=== PATIENT | male | born 1960 | race Caucasian/White ===

== ENCOUNTER 2024-11-29 14:24 | Outpatient (AMB) | payer MEDICARE, SELFPAY ==
[2024-11-29 15:43] VITALS: BMI 28.7
--- NOTE | 2024-11-29 15:43 | A.SPINEOV_ITS ---
Vital Signs 11/29/24 15:43 Height 5 ft 10 in Weight 200 lb BMI 28.7 Intake Visit Reasons: spinal stenosis/second opinion Intake Note: Mr. Meyers is here today c/o Low back pain that radiates down to the legs causing numbness and tingling. 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 Zabala, Thank you for referring Yoshi to our office today. He is a pleasant 64-year-old male who comes in today with a chief complaint of mild low back pain accompanied by moderate-severe leg pain with ambulation. He denies any known inciting incident, and states that around April of 2023 he began feeling leg pain with the excessive activity. He states that his pain is a 8/10 with ambulation, and is 0/10 with rest. When describing his pain he states that it comes on after about 100 steps, and starts as a shooting pain into his bilateral posterior thighs. This pain will eventually develop into medial thigh numbness/tingling. Functionally, he is still doing quite well. He is able to complete his basic ADLs including grocery shopping without significant issue. Unfortunately, he was unable to remain as active as he previously was and can no longer go for long walks outside or participate in outdoor activities. He has been to physical therapy in the past and last completed a course of physical therapy in the late fall which he did find was helpful for him. He has not attempted cor tisone injections, has not tried to work with a chiropractor, and has not attempted acupuncture as of yet. He does not take any xuep-zay-wqwakri medications, as he feels these are not helpful for him. PMH: Hypertension, hyperlipidemia, bilateral total knee arthroplasty in 2019. Social hx: The patient does not smoke, reports no substance use other than recreational cannabis. Medications: Triamterene, HCTZ, lisinopril, fenofibrate, simvastatin. Allergies: NKDA. Physical exam: The patient has 5/5 strength in his upper and lower extremities. He has no significant sensational deficits. His reflexes are 2+ intact. He rises from a seated position without difficulty. He ambulates well without an antalgic or spastic gait. (-) bilateral straight leg raise, (-) Rea's, (-) clonus. Imaging review: MRI of the lumbar spine completed at [facility] shows severe central canal stenosis at L3-4, L4-5. There is moderate-severe bilateral foraminal stenosis at these levels worse on the right at L3-4. There is also a very slight spondylolisthesis at L4-5. Impression: Yoshi is a pleasant 64-year-old male who comes in today with a chief complaint of low-grade low back pain, with moderate-severe shooting pains into his bilateral lower extremities with ambulation. He was evaluated alongside the attending neurosurgeon Dr. Ford today. His history and clinical presentation is most consistent with spinal stenosis with neurogenic claudication. Unfortunately he feels this is quite limiting for him. He is unable to engage in meaningful activities, and is largely unable to exercise outdoors. He is concerned that his quality of life is diminishing significantly as a result of this. He is highly motivated for surgical correction this issue. We discussed the possible interventions for this which could be temporizing measures just cortisone injections or more permanent solution such as surgery. The patient would prefer to proceed with surgery. After evaluating the patient Dr. Ford offered the patient L3-4, L4-5 lumbar decompression unilateral approach. He knows there is a risk of increased instability in the presence of a pre-existent mild spondylolisthesis. However, we think it goes too far to offer him a 2 level fusion in the absence of back pain. The risk of instability is minor. I used the spine models in our office to explain this procedure to him. I answered all of his questions to the best of my ability. Yoshi was given risk and benefits of surgery including but not limited to infection, hematoma, nerve injury, durotomy, weakness, bowel/bladder injury, persistent pain, as well as the option to continue with conservative treatment and patient wishes to proceed with surgery. They are aware they should stop NSAIDs 7 days prior to surgery. All questions were answered to the best of our ability. If there is anything about this patients medical history that we have overlooked or concerns you have about us proceeding with surgery we would appreciate any input you can offer. Thank you for allowing us to care for your patient. The total time spent with this visit with this patient was 45 minutes reviewing history, physical exam, MRI imaging review, and implementation of treatment plan or further diagnostic testing Jl Ford MD,PhD [facility] Orders: Referrals Spine Surgery Notification M48.062 - Spinal stenosis, lumbar region with neurogenic claudication Coding Level of Care Code New Pt Level 4 (03160) Diagnoses Spinal stenosis of lumbar region with neurogenic claudication M48.062
--- OUTSIDE RECORDS SUMMARY | 2024-11-29 17:02 | XMS_ITS | Data Portability ---
Author Organization [facility] Address [address] [place] [address] Care Team Providers Care Costing Analyst Name Role Phone RONY FINK Primary Care Provider [phone] RONY FINK Referring Provider [phone] Assessment No assessment recorded. Plan of Treatment Reminders Order Date Submit Date Provider Last Modified By Organization Details Last Modified Time Details Appointments None record ed. Lab None record ed. Referral None record ed. Procedures None record ed. Surgeries None record ed. Imaging XR, foot, 3 or more view 023 10/14/20 23 [email or web address] In-House Test, For Internal Use Only, Do Not Delete/merge, [id number] 13:45:23 Medication Orders None record ed. Patient TargetsNo targets recorded. Patient Instructions Encounter Date Encounter Id Patient Instructions Last Modified By Organization Details Last Modified Time 10/14/2023 [id number] For shoes, look at the Jarad fly lite and ultrafly (and rekovr if they have your size) and see how they feel. I like shoes that are square and deep in the toe box. Not available 10/14/2023 13:41:59 The findings of hammertoe were discussed at length. Treatment can involve activity modification, shoe change, padding, trimming painful callus/corn, orthotics, medication and surgery. The findings of metatarsalgia were reviewed at length. The soreness in the ball of the foot can be from the bone, capsule, or the plantar plate region. This can be treated using anti-inflammatory medicine or injections, ice, changing shoes, padding-reducing the offending activity, inserts/orthotics and ultimately trying to reduce load through the forefoot by addressing proximal tightness and immobility. Surgery is needed at times for this condition. At this time patient has decided on the budin splint today, shoe changes with width and depth. Patient Education Genius was used during today's discussion creating content for the patient and reviewing the underlying condition, the cause(s) of the condition(s), specific instruction on home management, helpful exercises and specific areas of focus. He would need a PIPJ fusion, perhaps DIPJ arthroplasty and met osteotomy +/- plantar plate repair. The new patient visit today had a decision making nature that was of {{straight forward complexity or required a total time of 15-29 minutes including time spent directly with the patient explaining their conditions, causes and treatment options as well as time reviewing external notes, ordering and reviewing any tests if applicable low level complexity or required a total time of 30-44 minutes including time spent directly with the patient explaining their conditions, causes and treatment options as well as time reviewing external notes, ordering and reviewing any tests if applicable* modera te level complexity or required a total time of 45-59 minutes including time spent directly with the patient explaining their conditions, causes and treatment options as well as time reviewing external notes, ordering and reviewing any tests if applicable high level complexity or required a total time of 60-74 minutes including time spent directly with the patient explaining their conditions, causes and treatment options as well as time reviewing external notes, ordering and reviewing any tests if applicable}}. An opportunity was provided for the patient to ask questions and all of the patient's questions were answered to their satisfaction. Not available 10/14/2023 13:44:48 02/16/2024 [id number] The findings of hammertoe were discussed at length. Treatment can involve activity modification, shoe change, padding, trimming painful callus/corn, orthotics, medication and surgery. The findings of metatarsalgia were reviewed at length. The soreness in the ball of the foot can be from the bone, capsule, or the plantar plate region. This can be treated using anti-inflammatory medicine or injections, ice, changing shoes, padding-reducing the offending activity, inserts/orthotics and ultimately trying to reduce load through the forefoot by addressing proximal tightness and immobility. Surgery is needed at times for this condition. The budin splint wasn't helpful but not hurtful. The shoe changes with width and depth helped and that will be further explored with more suggestions made. Patient Education Genius was used during today's discussion creating content for the patient and reviewing the underlying condition, the cause(s) of the condition(s), specific instruction on home management, helpful exercises and specific areas of focus. He would need a PIPJ fusion, perhaps but unlikely an DIPJ arthroplasty and less likely a met osteotomy or plantar plate repair. The potential risks and benefits of surgery were discussed with the patient including but not limited to, the risk of infection, slow healing of incision, bleeding, blood clot, injury to nerves, postoperative stiffness and failure of the surgery to achieve its intended goals. We also discussed the usual postoperative return to activity/work program. We talked about importance of icing, elevation and pain medication. Patient questions elicited and answered satisfactorily regarding planned procedure. Discussed postoperative pain control plan as well. Patient has reached skeletal maturity. Symptoms have been unresponsive to conservative therapy treatment for at least __ months. Symptoms include: - Significant foot pain that limits everyday activity (walking, wearing reasonable shoes) - Chronic inflammation and swelling that does not improve with rest and medications. - Toe deformity and stiffness that does not allow the toe to bend. The established patient visit today had a decision making nature that was of {{straight forward complexity or required a total time of 10-19 minutes including time spent directly with the patient explaining their conditions, causes and treatment options as well as time reviewing external notes, ordering and reviewing any tests if applicable low level complexity or required a total time of 20-29 minutes including time spent directly with the patient explaining their conditions, causes and treatment options as well as time reviewing external notes, ordering and reviewing any tests if applicable moderat e level complexity or required a total time of 30-39 minutes including time spent directly with the patient explaining their conditions, causes and treatment options as well as time reviewing external notes, ordering and reviewing any tests if applicable* high level complexity or required a total time of 40-54 minutes including time spent directly with the patient explaining their conditions, causes and treatment options as well as time reviewing external notes, ordering and reviewing any tests if applicable}}. An opportunity was provided for the patient to ask questions and all of the patient's questions were answered to their satisfaction. Not available 02/16/2024 08:16:07 Reason for Referral None Reported. Results Created Date Observation Date Name Description Value Unit Range Abnormal Flag Note LastModifiedBy Organization Detail LastModifiedTime 10/12/20 23 XR, foot, 3 or more view No observ ation record ed. [email or web address] In-House Test For Internal Use Only, Do Not Delete/merge, [id number] 10/14/2023 13:39:48 Result Notes None recorded. Problems Name Problem SNOMED Code Status Onset Date Resolution Date Notes Provider Name and Address Organization Details Recorded Time Hypertensive disorder 96330991 Active 2022 Long Loera DPM [address], [address], [facility] 3 13:28:55 Hypercholeste rolemia 71676999 Active 2022 Long Loera DPM [address], [address], [facility] 3 13:29:00 Hammer toe 986103753 Active 2022 Long Loera DPM [address], [place], [address], [facility] 3 13:37:46 Metatarsalgia 80985275 Active 2022 Long Loera DPM [address] [address], [place], [address], [facility] 3 13:37:50 Degenerative joint disease of ankle AND/OR foot 58703575 Active 2022 Long Loera DPM [address], [address], [facility] 3 13:37:54 Problem Notes None recorded. Procedures Surgical History Date Name Laterality Status Provider Name and Address Organization Details Recorded Time 9 Orthopedic Surgery completed [facility] 10/14/2023 13:06:22 0 Orthopedic Surgery completed [facility] 10/14/2023 13:06:22 Imaging Results Imaging Date Name Status LastModified by Jason marlowion Details LastModified Time 10/12/2023 XR, foot, 3 or more view completed [email or web address] In-House Test For Internal Use Only, Do Not Delete/merge, [id number] 10/14/2023 13:39:48 Procedure Notes None recorded. Medical Equipment None Reported. Allergies No known drug allergies Medications Name Sig Start Date Stop Date Status Note LastModified by Organization Details LastModified Time atorvastatin 10 mg tablet TAKE 1 TABLET BY MOUTH ONCE A DAY active Not Available Not Available No t Available naltrexone 50 mg tablet TAKE 1 TABLET BY MOUTH EVERY DAY active Not Available Not Available No t Available spironolactone 25 mg-hydrochloroth iazide 25 mg tablet TAKE 1 TABLET BY MOUTH EVERY DAY active Not Available Not Available No t Available lisinopril 40 mg tablet TAKE 1 TABLET BY MOUTH ONCE A DAY active Not Available Not Available No t Available bupropion HCl XL 150 mg 24 hr tablet, extended release active Not Available Not Available Not Available fenofibrate 160 mg tablet TAKE 1 TABLET BY MOUTH EVERY DAY active Not Available Not Available No t Available spironolacton-hy drochlorothiaz active Not Available Not Availab le Not Available lisinopril active Not Available Not Av ailable Not Available Vitals Date Recorded Body height Body mass index (BMI) Body weight Provider Name and Address Organization Details Last Updated DateTime 10/14/2023 177.8 cm 30 kg/m2 84786.81 g [facility] 10/14/2023 13:07:03 Date Recorded Body height Body mass index (BMI) Body weight Provider Name and Address Organization Details Last Updated DateTime 02/16/2024 177.8 cm 30 kg/m2 91359.81 g [facility] 02/16/2024 07:46:16 Social History Question Answer Notes LastModified by Carolyn brumfield Details LastModified Time Tobacco Smoking Status Unknown If Ever Smoked [place] Rae vazquez [facility] 10/14/2023 13:06:21 Do You Have An Advance Directive? No Information not available 10/14/2023 What Is Your Level Of Alcohol Consumption? Occasional Information not available 10/14/2023 Are You Blind Or Do You Have Difficulty Seeing? No Information not available 10/14/2023 Are You Deaf Or Do You Have Serious Difficulty Hearing? No Information not available 10/14/2023 Do You Or Have You Ever Used E-cigarettes Or Vape? 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 5?10? Information not available 10/14/2023 What Is Your Weight? 209 Information not available 10/14/2023 Do You Have Type 2 Diabetes? No Information not available 10/14/2023 Do You Have Type 1 Diabetes No Information not available 10/14/2023 Are You Being Seen Today For A Work Related Injury? No Information not available 10/14/2023 What Is Your Shoe Size & Width? 9 Information not available 10/14/2023 Do You Have A Medical Power Of Loop Tacker? Yes Information not available 10/14/2023 What Is Your Relationship Status? Information not available 10/14/2023 Do You Or Have You Ever Used Smokeless Tobacco? Never Used Smokeless Tobacco Information not available 10/14/2023 How Much Tobacco Do You Smoke? No Information not available 10/14/2023 What Types Of Sporting Activities Do You Participate In? [place] Information not available 10/14/2023 Do You Use Any Illicit Or Recreational Drugs? Yes Information not available 10/14/2023 Do You Or Have You Ever Used Any Other Forms Of Tobacco Or Nicotine? No Information not available 10/14/2023 Sex: Unknown Functional Status Question Answer Note LastModified by Organizat ion Details LastModified Time Do you have difficulty walking or climbing stairs? No Information not available 10/14/2023 Are you able to walk? YESWOREST Information not available 10/14/2023 What is your exercise level? Moderate Information not available 10/14/2023 Mental Status None recorded. Family History Nothing Reported. Medical History Condition Response High Blood Pressure Y High Cholesterol Y Past Encounters Encounter ID Performer Location Encounter Start Date Encounter Closed Date Diagnosis/Indication Diagnosis SNOMED-CT Code Diagnosis ICD10 Code Diagnosis Note [id number] Long Loera DPM [facility] [address] [address] 10/14/2023 13:02:43 10/27/2023 16:36:19 Hammer toe 274859403 M20.41 Metatarsalgia 41351016 M 77.41 Degenerati ve joint disease of ankle AND/OR foot 46911058 M19.071 M19.072 [id number] Long Loera DPM [facility] [address] [place] [address] 02/16/2024 07:43:46 02/16/2024 08:31:44 Hammer toe 349044899 M20.41 Metatarsalgia 93965397 M 77.41 Degenerati ve joint disease of ankle AND/OR foot 37328518 M19.071 M19.072 Health Concerns Section Related Observation LastModified by Organization Detai ls LastModified Time None Recorded Concern Status LastModified by Organization Details LastModified Time None Recorded Advance Directives Directive N: Payers Encounter Date Sequence Insurance Name Policy Number Policy Sunshine Covered Member ID Sunshine Member ID Guarantor Name 10/14/2023 2 [facility] (MEDICARE SUPPLEMENT) [id number] Yoshi Meyers [id number] Yoshi Meyers 10/14/2023 1 [place] Yoshi Meyers [id number] Yoshi Meyers 02/16/2024 2 [facility] (MEDICARE SUPPLEMENT) [id number] Yoshi Meyers [id number] Yoshi Meyers 02/16/2024 1 [place] Yoshi Meyers [id number] Yoshi Meyers Notes Date Note Type Note Provider Name and Address Organization Details Recorded Time 10/14/2023 text/html Foot PainReporte d bypatient.Location: right; 2nd digit Severity:mild; worst pain 7/10 Duration:6 years Timing:cannot identify Context:cannot identify Alleviating Factors:nothing helps Aggravating Factors:shoes Associated Symptoms:no redness;numbness;sw elling Previous Surgery:none Prior Imaging:x ray; August 02 2023Notes:Yoshi presents to the office today for right 2nd digit pain. He states this has been ongoing for 6 years after hitting into furniture. He denies any pain and he notes he went to the emergency room in July and had x rays. He notes nothing was done. He reports there is a mild pain and swelling and also numbness. He notes there is more pain when the toe rubs against shoes. He notes he has had full knee replacement surgery in 2018. No further concerns noted. Long Loera DPM [address], [address], [facility] 10/14/2023 13:45:26 02/16/2024 text/html Follow Up VisitReported bypatient.Symptoms: same Previous Therapy:none Previous Injections:none Prior Studies:noneNotes:Alma raines returns to the office today for a follow up of 2nd digit pain and hammertoes. He states no change since last visit. He relates he has been walking a couple miles everyday denies any issues. No new questions or concerns. Long Loera DPM [address], [address], [facility] 02/16/2024 08:24:30
== END 2024-11-30 09:00 | disposition home or self-care (01) ==
PROVIDERS: PCP Family Medicine; Referring Provider Family Medicine; Visit Provider Neurological Surgery
DX: M48.062 Spinal stenosis, lumbar region with neurogenic claudication (principal)
CPT/HCPCS: 99204

== ENCOUNTER → 2024-11-29 14:24 | Outpatient (BNVA) | payer MEDICARE, SELFPAY | PROVIDERS: PCP Family Medicine; Referring Provider Family Medicine; Visit Provider Neurological Surgery | DX: M48.062 Spinal stenosis, lumbar region with neurogenic claudication (principal) | CPT/HCPCS: 99202 ==

== ENCOUNTER → 2024-12-06 13:30 | Outpatient (BNV) | payer MEDICARE, SELFPAY | PROVIDERS: PCP Family Medicine; Visit Provider Internal Medicine Cardiovascular Disease | DX: R94.31 Abnormal electrocardiogram [ECG] [EKG] (principal) | CPT/HCPCS: 93010 ==

== ENCOUNTER 2024-12-14 07:01 | Day surgery (SDC) | payer MEDICARE, SELFPAY ==
--- NOTE | 2024-12-06 | ECG_ITS ---
Test Reason : PRE OP Blood Pressure : */* mmHG Vent. Rate : 70 BPM Atrial Rate : 70 BPM P-R Int : 162 ms QRS Dur : 132 ms QT Int : 462 ms P-R-T Axes : 55 31 29 degrees QTcB Int : 498 ms Normal sinus rhythm Right bundle branch block Abnormal ECG No previous ECGs available Referred By: Cristal Torres Electronically Signed By: ELIGIO KITCHEN MD
[2024-12-06 12:53] VITALS: BP 182/94; PULSE 77; RESP 18; O2SAT 97; BMI 28.7
--- NOTE | 2024-12-06 13:06 | HO.ANESPROP2 ---
Documented by User: Cristal Torres NP 12/13/24 09:46 HPI - Anesthesia Eval Consult details Narrative: 64yo M for L3-4,L4-5 Lumbar Decompression No recent illness No CP/SOB within limits of back pain - able to do yard work naltrexone/bupropion for weight loss - advised hold preop BP elevated at PAT. [facility] home checks SBP ~ 140-160. Will log and bring DOS PMFSH Active Problems Active Problems: All Active Problems Spinal stenosis of lumbar region with neurogenic claudication (Acute) Past Medical History Medical History Losing weight Arthritis Elevated cholesterol HTN (hypertension) Spinal stenosis Back pain Family History Family history of problems with anesthesia: No Surgical History Surgical History Hx of arthroscopic knee surgery H/O colonoscopy History of total bilateral knee replacement History of Problems with Anesthesia: No Social History Social History Are you a primary rehab care assistant to a significant other at home: No Do you presently have visiting nurse or other home services: No Patient Tobacco Use Status: Never used Tobacco Use of substances other than those prescribed or required for medical reasons: Yes Substance Use Type Other:: advised to hold 3-5 days pre-op Substance Use Frequency: Daily Have you been hit, kicked, punched, or otherwise hurt by someone within the past year? If so, by whom?: No Spiritual Healthcare Practices: none [facility] Practices: Mormonism Cultural Healthcare Practices: none Are you DNR?: No Advance Directives Information Provided: Yes (as above noted) Advance Directives on File: No Recently lost weight without trying: No Eating poorly because of decreased appetite: No Nutrition Risks: No Nutritional Risk Poor oral hygiene: No Meds Allergies Allergy/AdvReac Type Severity Reaction Status Date / Time No Known Allergies Allergy Verified 12/14/24 07:08 Home Medications ?Medication ?Instructions ?Recorded ?Confirmed ?Last Taken ?Type atorvastatin 10 mg tablet 10 mg PO QAM 12/05/24 12/06/24 Unknown History bupropion HCl 150 mg 24 hr tablet, 150 mg PO QAM 12/05/24 12/05/24 Unknown History extended release fenofibrate 160 mg tablet 160 mg PO QAM 12/05/24 12/06/24 Unknown History lisinopril 40 mg tablet 40 mg PO DAILY 12/05/24 12/05/24 Unknown History naltrexone 50 mg tablet 50 mg PO QAM 12/05/24 12/06/24 Unknown History spironolactone 25 1 tab PO QAM 12/05/24 12/06/24 Unknown History mg-hydrochlorothiazide 25 mg tablet aspirin 81 mg tablet,delayed 81 mg PO QAM 12/06/24 12/06/24 Unknown History release cholecalciferol (vitamin D3) 25 25 mcg PO QAM 12/06/24 12/06/24 Unknown History mcg (1,000 unit) capsule (Vitamin D3) Exam Height,Weight and Vital Signs: Height 5 ft 10 in Weight 90.718 kg Last Vital Signs Pulse 77 12/06/24 12:53 Resp 18 12/06/24 12:53 BP 182/94 H 12/06/24 12:53 Pulse Ox 97 12/06/24 12:53 O2 Del Method Room Air 12/06/24 12:53 Pertinent Lab Results Pertinent Lab Results: BMP 11/2024 from outside facility [place] Narrative Narrative: EKG 11/2024 Vent. Rate : 70 BPM Atrial Rate : 70 BPM P-R Int : 162 ms QRS Dur : 132 ms QT Int : 462 ms P-R-T Axes : 55 31 29 degrees QTcB Int : 498 ms Normal sinus rhythm Right bundle branch block Abnormal ECG No previous ECGs available Airway Mallampati Class: I TM Dist: >3cm Neck ROM: Full Loose/Missing/Broken Teeth: Yes (Missing molars) Heart: RRR Lungs: CTAB Assessment and Plan Assessment Anesthesia Assessment: Anesthesia Plan Discussed and PAT Visit Final Anesthetic Review Family History of Problems with Anesthesia: No History of Problems with Anesthesia: No Documented by User: Farheen Aiken MD 12/14/24 08:17 [facility] Past Medical History Medical History Losing weight Arthritis Elevated cholesterol HTN (hypertension) Spinal stenosis Back pain Surgical History Surgical History Hx of arthroscopic knee surgery H/O colonoscopy History of total bilateral knee replacement Social History Social History Are you a primary rehab care assistant to a significant other at home: No Do you presently have visiting nurse or other home services: No Patient Tobacco Use Status: Never used Tobacco Use of substances other than those prescribed or required for medical reasons: Yes Substance Use Type Other:: advised to hold 3-5 days pre-op Substance Use Frequency: Daily Have you been hit, kicked, punched, or otherwise hurt by someone within the past year? If so, by whom?: No Spiritual Healthcare Practices: none [facility] Practices: Mormonism Cultural Healthcare Practices: none Are you DNR?: No Advance Directives Information Provided: Yes (as above noted) Advance Directives on File: No Recently lost weight without trying: No Eating poorly because of decreased appetite: No Nutrition Risks: No Nutritional Risk Poor oral hygiene: No Meds Allergies Allergy/AdvReac Type Severity Reaction Status Date / Time No Known Allergies Allergy Verified 12/14/24 07:08 Home Medications ?Medication ?Instructions ?Recorded ?Confirmed ?Last Taken ?Type atorvastatin 10 mg tablet 10 mg PO [facility] 12/05/24 12/06/24 Unknown History bupropion HCl 150 mg 24 hr tablet, 150 mg PO [facility] 12/05/24 12/05/24 Unknown History extended release fenofibrate 160 mg tablet 160 mg PO [facility] 12/05/24 12/06/24 Unknown History lisinopril 40 mg tablet 40 mg PO DAILY 12/05/24 12/05/24 Unknown History naltrexone 50 mg tablet 50 mg PO [facility] 12/05/24 12/06/24 Unknown History spironolactone 25 1 tab PO [facility] 12/05/24 12/06/24 Unknown History mg-hydrochlorothiazide 25 mg tablet aspirin 81 mg tablet,delayed 81 mg PO [facility] 12/06/24 12/06/24 Unknown History release cholecalciferol (vitamin D3) 25 25 mcg PO [facility] 12/06/24 12/06/24 Unknown History mcg (1,000 unit) capsule (Vitamin D3) Assessment and Plan Assessment Anesthesia Assessment: Smoking Cess. Discussed and Chart Reviewed Final Anesthetic Review NPO: Yes ASA Class: III Final Preanesthetic Review: No Changes in Pt Med Stat, Meds/Allgs Chart Reviewed, Consent Obtained/Reviewed and Anes Risks/Benef Reviewed Patient Risk: Low Procedure Risk: Intermediate Anesthetic Plan Anesthetic Plan: GA Disposition: Standard PACU
[2024-12-14] VITALS (8 sets, daily range): BP systolic 127–163; BP diastolic 56–75; PULSE 80–94; RESP 12–16; TEMP 36.1; O2SAT 96–100; BMI 29.4
--- NOTE | ~2024-12-14 | FL_ITS ---
EXAMINATION: FL GUIDANCE ONLY HISTORY: L3-4, L4-5 decompression COMPARISON: None available. TECHNIQUE: Fluoroscopy time: 8.4 seconds. Cumulative Dose: 8.1902 mGy. DAP: 3.0623 uGy-m2 (microgray-meter squared). Images: 2. FINDINGS: Lateral spot films of the lumbar spine demonstrate a probe directed to the L4-5 intervertebral disc space from a posterior approach. FL/FL guidance in OR IMPRESSION: Fluoroscopy during procedure. Please see procedure report for additional information. Electronically signed by: Stu Solis MD 12/14/2024 11:40 AM [id number]
--- NOTE | 2024-12-14 07:04 | MHC.SHP ---
Pre-Procedural Eval Section A - 24 Hr Update-Section A only Date of Service: 12/14/24 The patient is an INPATIENT: No Changes since office visit: No Cold of Flu in the past 2 weeks, No New Medical Problems, No Changes in Medication and No Patient answered all questions The patient has been examined within 24 hours of the surgical procedure. The History & Physical has been completed within 30 days and I have reviewed it.: No Section B - Complete if H&P > 30 days Chief Complaint: Spinal stenosis, lumbar region with neurogenic Allergies: Allergies Allergy/AdvReac Type Severity Reaction Status Date / Time No Known Allergies Allergy Verified 11/29/24 15:45 Review of Systems Sugical H&P ROS: Negative: Constitution, Cardiovascular, Respiratory, Neurological, Psychiatric, Hem-Onc, Allergic/Immunologic, Gastrointestinal, Genitourinary, Musculoskeletal, Integumentary, Endocrine and Eyes/Ears/Nose/Throat Exam Surgical H&P Exam: Normal: HEENT, Normal: Heart, Normal: Lungs, Normal: Extremities, Normal: Abdomen, Normal: Skin and Normal: Neurological (awake, alert,oriented x 3 ) Plan Diagnosis/Plan: Unchanged L3-4, L4-5 decompression Time Spent With Patient Time: Total time managing care of this patient today _6___ minutes.
--- NOTE | 2024-12-14 07:04 | PM.DS ---
DS: Providers Provider Date of Service: 12/14/24 Date of discharge: 12/14/24 Primary care physician: Deangelo Zabala MD Admitting clinician: Daljit Ford DS: Diagnosis Discharge Diagnosis (1) Spinal stenosis of lumbar region with neurogenic claudication: Status: Acute DS: Summary Time Attestation Discharge Coordination Time (in mins): 5 Quality: Safe Use of Opioids Does Pt have an Active Cancer Diagnosis on the Problem List?: No Quality: Stroke Does the patient have a stroke diagnosis?: No Physical Exam Vital Signs: Vital Signs: Last Vital Signs Pulse 77 12/06/24 12:53 Resp 18 12/06/24 12:53 BP 182/94 H 12/06/24 12:53 Pulse Ox 97 12/06/24 12:53 O2 Del Method Room Air 12/06/24 12:53 BMI result Body Mass Index 28.7 Discharge Plan Discharge Patient Disposition: Home, Self-Care Referrals: Deangelo Zabala MD [Primary Care Provider] - 1 Week Discharge Medications: New oxycodone 5 mg tablet 5 mg PO Q4H PRN (Reason: pain) Qty: 30 0RF Rx Instructions: Partial Fill upon patient request. docusate sodium [Colace] 100 mg capsule 100 mg PO BID Qty: 20 0RF Continued atorvastatin 10 mg tablet 10 mg PO QAM naltrexone 50 mg tablet 50 mg PO QAM Rx Instructions: for weight loss spironolacton-hydrochlorothiaz 25-25 mg tablet 1 tab PO QAM lisinopril 40 mg tablet 40 mg PO DAILY bupropion HCl 150 mg tablet extended release 24 hr 150 mg PO QAM Rx Instructions: for weight loss fenofibrate 160 mg tablet 160 mg PO QAM cholecalciferol (vitamin D3) [Vitamin D3] 25 mcg (1,000 unit) Capsule 25 mcg PO QAM Held aspirin 81 mg Tablet,Delayed Release (Dr/Ec) 81 mg PO QAM Hold Instructions: Resume on 12/21/24. You may resume aspirin 7 days after surgery Discharge Orders: Discharge Order (Routine); Ordered 12/14/24 Ordered By: Reddy Dale Diet: Advance to usual diet Activity on Discharge: As tolerated Activity Restrictions/Additional Instructions: After your spinal surgery we ask you to observe the following restrictions/guidelines: Activity: It is normal to feel some discomfort as you increase your activity, but that will improve with time. We ask you avoid heavy lifting or acitivities that cause pain. As a general rule, 8lbs is a safe limit for lifting right after surgery. Walk as much as you feel comfortable but not to exhaustion. You will feel extra tired the first few days after surgery. Stay well hydrated. It is OK to walk up and down stairs You may return to driving when you are off narcotics (such as vicodin, oxycodone, dilaudid, etc), and you are back to normal functional capacity. If you have any concerns please check with office before driving. Return to work is specific to each patient and each surgery, so please speak with your doctor/PA at first follow up. Please bring paperwork such as FMLA at that time if you need it filled out. Medications: For optimum pain control, it is best to start with a combination of 500 mg of Tylenol every 4 hours with 600 mg of Motrin every 8 hours, and use narcotics as needed in between for breakthrough pain. We will give you a short supply of narcotics after surgery (usually one weeks worth). If you need more please call the office but do not use more than prescribed. You will need to give our office 48 hours notice if you need narcotics refilled and we do not fill narcotics on weekends or evenings. If you are on a narcotic, it is a good idea to take a stool softener such as colace or senna to avoid constipation If you take blood thinner such as aspirin, Plavix, Coumadin, Effient, Eliquis etc for conditions such as Afib, DVT, Pulmonary embolus, coronary disease, stents etc please speak with your surgeon about specific details as to when you can resume these medications. You can resume NSAIDs on post op day 1 (eg: Motrin, Naproxen, etc). Follow up: Please call the office, , after surgery to arrange a 3 week follow up for wound check. Wound Care: You may remove your dressing on the first day after surgery. ?You may ?leave open to air. Please do not remove the steri strips underneath. they will fall off on their own in one week. IT IS NORMAL FOR THE WOUND TO OOZE OR BE BLOODY FOR A FEW DAYS AFTER SURGERY. ?IF THIS HAPPENS JUST PLACE NEW DRESSING OVER IT TO AVOID STAINING CLOTHES. You may shower on post op day # 1 We ask that you do not let the water soak the wound. If it does get wet, just towel dry lightly. Please do not scrub your incision or place any type of chemical/ointment on the wound. No tub baths, pools or jacuzzis for one month. If you have any leaking or redness from your wound, or fevers, please call office Print Language: Icelandic
[2024-12-14] MEDS: Gabapentin 300 MG CAPSULE PO (07:21)
[2024-12-14] MEDS: methocarbamoL 750 MG TABLET PO (07:22)
[2024-12-14] MEDS: Lactated Ringers 1,000 ML 100 ML IVCONT (07:44)
--- OUTSIDE RECORDS SUMMARY | 2024-12-14 10:27 | XMS_ITS | Encounter Summary ---
Author Organization [facility] Address [address] [place] [address] Care Team Providers Care Wooden Furniture Polisher Name Role Phone Deangelo Zabala MD Primary Care Provider Encounter Details Date Type Department Care Team (Late st Contact Info) Description 12/05/2024 Telephone [facility] [address] [place] [phone] Deangelo Zabala MD [address] [place] [id number] Social History Tobacco Use Types Packs/Day Years Used Date Smoking Tobacco: Never Passive Smoke Exposure: Never Smokeless Tobacco: Never Comments:: Alcohol Use Standard Drinks/Week Comments Yes 0 (1 standard drink = 0.6 oz pur e alcohol) [facility] Utilities Answer Date Recorded In the past 12 months has e electric, gas, oil, or water [employer] threatened to shut off services in your home? No 06/17/2024 Hunger Vital Sign Answer Date Recorded Within the past 12 months, y ou worried that your food would run out before you got the money to buy more. Never true 06/17/20 24 Within the past 12 months, t he food you bought just didn't last and you didn't have money to get more. Never true 06/17/2024 Transportation Answer Date Recorded In the past 12 months, has l ack of reliable transportation kept you from medical appointments, meetings, work or from getting things needed for daily living? No 06/17/2024 Housing Answer Date Recorded Housing Risk Low 2 06/17/2024 Housing Risk Medium Not on file 06/17/2024 Housing Risk High Not on file 06/17/2024 What is your living situation today? [facility] 06/17/2024 Sex and Gender Information Value Date Recorded Sex Assigned at Male 03/30/2019 10:03 AM EDT Legal Sex Male 2:33 AM EDT Gender Identity Male 03/30/2019 10:03 AM EDT Sexual Orientation Straight 03/30/2019 10 :03 AM EDT Occupation Industry Job Start Date Job End Date Retired Not on file Not on file Not on file documented as of this encounter Miscellaneous Notes * Telephone Encounter - Any Michele [place] - 12/05/2024 2:57 PM EST Paperwork was faxed over to [facility]. * Telephone Encounter - Zakiya Trinh - 12/05/2024 1:44 PM EST Tyra from [facility] called in to request labs, EKG and las RPE notes. Please fax to [phone] documented in this encounter Plan of Treatment Not on file documented as of this encounter Visit Diagnoses Not on filedocumented in this encounter Care Teams Wooden Furniture Polisher Relationship Specialty Start Date End Date Deangelo Zabala MD [address] [place] [id number] PCP - General Family Medicine 03/12/20 documented as of this encounter
--- OUTSIDE RECORDS SUMMARY | 2024-12-14 10:27 | XMS_ITS | Encounter Summary ---
Author Organization [facility] Address [address] [place] [address] Care Team Providers Care Foreign Clerk Name Role Phone Deangelo Zabala MD Primary Care Provider [phone] Encounter Details Date Type Department Care Team (Late st Contact Info) Description 11/30/2024 myChart Message [facility] [address] [place] [phone] Deangelo Zabala MD [address] [place] [phone] Labs Social History Tobacco Use Types Packs/Day Years Used Date Smoking Tobacco: Never Passive Smoke Exposure: Never Smokeless Tobacco: Never Comments:: Alcohol Use Standard Drinks/Week Comments Yes 0 (1 standard drink = 0.6 oz pur e alcohol) [facility] Utilities Answer Date Recorded In the past 12 months has [employer], gas, oil, or water [employer] threatened to shut off services in your [...] on file documented as of this encounter Plan of Treatment Not on file documented as of this encounter Visit Diagnoses Not on filedocumented in this encounter Care Teams Foreign Clerk Relationship Specialty Start Date End Date Deangelo Zabala MD [address] [place] [id number] PCP - General Family Medicine 03/12/20 documented as of this encounter
--- OUTSIDE RECORDS SUMMARY | 2024-12-14 10:27 | XMS_ITS | Data Portability ---
Author Organization [facility] Address [address] [place] [address] Care Team Providers Care Case Monitor Name Role Phone RONY FINK Primary Care Provider [phone] RONY FINK Referring Provider [phone] Assessment No assessment recorded. Plan of Treatment Reminders Order Date Submit Date Provider Last Modified By Organization Details Last Modified Time Details Appointments None record ed. Lab None record ed. Referral None record ed. Procedures None record ed. Surgeries None record ed. Imaging XR, foot, 3 or more view 023 10/14/20 23 [email or web address] In-House Test, For Internal Use Only, Do Not Delete/merge, [id number] 13:45:23 Medication Orders None record ed. Patient TargetsNo targets recorded. Patient Instructions Encounter Date Encounter Id Patient Instructions Last Modified By Organization Details Last Modified Time 10/14/2023 [id number] For shoes, look at the Jarad fly [...] their satisfaction. Not available 10/14/2023 13:44:48 02/16/2024 [id number] The findings of hammertoe were discussed at [...] For Internal Use Only, Do Not Delete/merge, [id number] 10/14/2023 13:39:48 Result Notes None recorded. Problems Name Problem SNOMED Code Status Onset Date Resolution Date Notes Provider Name and Address Organization Details Recorded Time Hypertensive disorder 25670400 Active 2022 Long Loera DPM [address], [phone], [facility] 3 13:28:55 Hypercholeste rolemia 85560075 Active 2022 Long Loera DPM [address], [phone], [facility] 3 13:29:00 Hammer toe 296243193 Active 2022 Long Loera DPM [address] [facility] [address], [place], [phone], [facility] 3 13:37:46 Metatarsalgia 75093119 Active 2022 Long Loera DPM [address] [address], [place], [address], [facility] 3 13:37:50 Degenerative joint disease of ankle AND/OR foot 82535580 Active 2022 Long Loera DPM [address], [phone], [facility] 3 13:37:54 Problem Notes None recorded. Procedures Surgical History Date Name Laterality Status Provider Name and Address Organization Details Recorded Time 9 Orthopedic Surgery completed [facility] 10/14/2023 13:06:22 0 Orthopedic Surgery completed [facility] 10/14/2023 13:06:22 Imaging Results Imaging Date Name Status LastModified by Jason marlowion Details LastModified Time 10/12/2023 XR, foot, 3 or more view completed [email or web address] In-House Test For Internal Use Only, Do Not Delete/merge, [id number] 10/14/2023 13:39:48 Procedure Notes None recorded. Medical [...] Updated DateTime 10/14/2023 177.8 cm 30 kg/m2 20594.81 g [facility] 10/14/2023 13:07:03 Date Recorded Body height Body mass index (BMI) Body weight Provider Name and Address Organization Details Last Updated DateTime 02/16/2024 177.8 cm 30 kg/m2 19877.81 g [facility] 02/16/2024 07:46:16 Social History Question Answer Notes LastModified by Carolyn brumfield Details LastModified Time Tobacco Smoking Status Unknown If Ever Smoked [place] Rae vazquez [facility] 10/14/2023 13:06:21 Do You [...] available 10/14/2023 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 Information not available 10/14/2023 What Is [...] SNOMED-CT Code Diagnosis ICD10 Code Diagnosis Note [id number] Long Loera DPM [facility] [address] [address] 10/14/2023 13:02:43 10/27/2023 16:36:19 Hammer toe 095293920 M20.41 Metatarsalgia 50324683 M 77.41 Degenerati ve joint disease of ankle AND/OR foot 71368447 M19.071 M19.072 [id number] Long Loera DPM [facility] [address] [place] [address] 02/16/2024 07:43:46 02/16/2024 08:31:44 Hammer toe 710995292 M20.41 Metatarsalgia 75576621 M 77.41 Degenerati ve joint disease of ankle AND/OR foot 82272288 M19.071 M19.072 Health Concerns Section Related Observation LastModified by Organization Detai ls LastModified Time None Recorded Concern Status LastModified by Organization Details LastModified Time None Recorded Advance Directives Directive N: Payers Encounter Date Sequence Insurance Name Policy Number Policy Sunshine Covered Member ID Sunshine Member ID Guarantor Name 10/14/2023 1 [place] [employer] Yoshi Meyers [id number] Yoshi Meyers 10/14/2023 2 [facility] [employer] [facility] (MEDICARE SUPPLEMENT) [id number] Yoshi Meyers [id number] Yoshi Meyers 02/16/2024 1 [place] Yoshi Meyers [id number] Yoshi Meyers 02/16/2024 2 [facility] [employer] [facility] (MEDICARE SUPPLEMENT) [id number] Yoshi Meyers [id number] Yoshi Meyers Notes Date Note Type Note [...] concerns noted. Long Loera DPM [address], [address], [facility] 10/14/2023 13:45:26 02/16/2024 text/html Follow Up VisitReported bypatient.Symptoms: same Previous Therapy:none Previous Injections:none Prior Studies:noneNotes:Alma raines returns to the office today for a follow up of 2nd digit pain and hammertoes. He states no change since last visit. He relates he has been walking a couple miles everyday denies any issues. No new questions or concerns. Long Loera DPM [address], [address], [facility] 02/16/2024 08:24:30
--- OUTSIDE RECORDS SUMMARY | 2024-12-14 10:28 | XMS_ITS | Referral Summary ---
Author Organization [facility] Address [address] [place] [address] Care Team Providers Care Tour Consultant Name Role Phone Deangelo Zabala MD Primary Care Provider [phone] Encounters Date Type Department Care Team Description 12/05/[address] [phone] Deangelo Zabala MD 11/30/2024 myChart Message [address] [address] Deangelo Zabala MD Labs 10/31/2024 myChart Message [address] [phone] Deangelo Zabala MD labs 10/31/2024 Orders Only [address] [address] Deangelo Zabala MD Elevated LFTs (Primary Dx); Elevation of levels of liver transaminase levels 10/30/[address] [phone] Vicki Mcnamara [place] 10/28/[address] [phone] Deangelo Zabala MD Hyperlipidemia, unspecified hyperlipidemia type; Hypertension, unspecified type 10/28/2024 Refill [facility] [address] [place] [address] Deangelo Zabala MD 10/20/2024 myChart Message [facility] [address] [place] [phone] Deangelo Zabala MD called again 10/19/2024 3:53 PM EST - 10/19/2024 11:59 PM EST Hospital Encounter [facility] [address] [place] [address] Reddy Hinojosa MD Low back pain, unspecified back pain laterality, unspecified chronicity, unspecified whether sciatica present Discharge Disposition: Home or Self Care (01) 10/19/2024 Orders Only [address] [address] Deangelo Zabala MD 10/19/2024 3:00 PM EST Office Visit [facility] [address] [place] [address] Reddy Hinojosa MD Spinal stenosis of lumbar region with neurogenic claudication (Primary Dx) 10/11/2024 Orders Only [address] [phone] Deangelo Zabala MD Elevated LFTs (Primary Dx); Elevation of levels of liver transaminase levels 10/03/2024 10:30 AM EST Office Visit [address] [address] Deangelo Zabala MD Spinal stenosis of lumbar region with neurogenic claudication (Primary Dx); Encounter for general adult medical examination with abnormal findings; Class 2 obesity due to excess calories without serious comorbidity with body mass index (BMI) of 35.0 to 35.9 in adult; Bilateral impacted cerumen; Hypertension 09/14/2024 9:00 AM EDT Follow-Up [facility] [address] [place] [address] Tom Pardo MD Spinal stenosis of lumbar region with neurogenic claudication (Primary Dx) from Last 3 Months Allergies Active Allergy Reactions Criticality Noted Date Comments Atorvastatin Hepatitis High 05/14/2005 ABN LIVER FUNCTION STUDY Medications aspirin 81 mg EC tablet Take 1 tablet (81 mg total) by mouth every 12 hours. Take with food. For 4 weeks 03/14/20 19 Active multivitamin (THERAGRAN) tablet Take 1 tablet by mouth daily. 03/15/20 19 Active cholecalciferol (VITAMIN D3) 1,000 unit tablet Take 1,000 Units by mouth daily. Active amoxicillin (AMOXIL) 500 mg capsule Take 2,000 mg by mouth once. Prior to dental procedures due to knee replacement 01/19/20 22 Active naltrexone (REVIA) 50 mg tablet Take 1 tablet (50 mg total) by mouth once a day. 90 tablet 3 02/15/20 24 025 Active buPROPion XL (WELLBUTRIN XL) 150 mg tablet TAKE 1 TABLET BY MOUTH EVERY DAY IN THE MORNING 90 tablet 1 07/05/20 24 Active atorvastatin (LIPITOR) 10 mg tablet TAKE 1 TABLET BY MOUTH ONCE A DAY 90 tablet 3 10/30/20 24 Active fenofibrate (LOFIBRA) tablet 160 mgIndications:Hype rlipidemia, unspecified hyperlipidemia type TAKE 1 TABLET BY MOUTH EVERY DAY 90 tablet 3 10/30/20 24 Active spironolacton-hydr ochlorothiaz (ALDACTAZIDE) 25-25 mg per tablet TAKE 1 TABLET BY MOUTH EVERY DAY 90 tablet 1 10/30/20 24 Active lisinopriL (PRINIVIL,ZESTRIL) 40 mg tabletIndications: Hypertension, unspecified type TAKE 1 TABLET BY MOUTH ONCE A DAY 90 tablet 3 10/30/20 24 Active Active Problems Problem Noted Date Diagnosed Date Spinal stenosis of lumbar re gion with neurogenic claudication 10/03/2024 Assessment & Plan (10/03/2024 12:17 PM EST): Agree with surgery; PT ed re Dx. postsurgical experiences discussed. Hammertoe of right foot 09/14/2023 Assessment & Plan (09/14/2023 9:03 AM EDT): Refer to podiatry as this impedes his walking; his form of exercise. Acute reaction to situational stress 02/02/2023 Assessment & Plan (09/14/2023 9:03 AM EDT): Rec he stop smoking and move to edibles Assessment & Plan (06/08/2023 9:41 AM EDT): We discuss he and his considering counseling. Meeting weekly to share 3 things the other person could to make life better. Pt expresses interest in going for therapy. Assessment & Plan (02/02/2023 10:02 AM EDT): He is offered referral to counselor and he will consider. He feels that he uses his sister as a sounding board is always been very effective in helping in this regard. I encouraged him to continue going to the group sessions at the [facility] Low serum parathyroid hormone (PTH) 03/03/2021 Assessment & Plan (06/03/2021 9:24 AM EDT): Appreciate work-up. Unclear what needs to be done with regards to maintenance evaluation. Will discuss with endocrine Granulocytosis 02/04/2021 Assessment & Plan (02/15/2024 9:49 AM EDT): Will recheck labs in 3 months. My suspicion is that it has been from the fenofibrate but it could be from other issues. Assessment & Plan (09/14/2023 9:39 AM EDT): We will recheck CBC with differential. I suspect this is due to the fenofibrate. Assessment & Plan (06/08/2023 9:36 AM EDT): We will monitor this again by repeating his CBC with differential prior to next visit. No treatment at this time. Assessment & Plan (10/21/2022 10:34 AM EST): resolved Assessment & Plan (11/25/2021 3:07 PM EST): Resolved; will follow Assessment & Plan (06/03/2021 9:23 AM EDT): Return to normal as of January of this year. Repeat once a year. Extensive work-up in the past. If becomes concerning would repeat SPEP and UPEP Assessment & Plan (02/04/2021 3:05 PM EDT): High in the past.; will recheck with CRP Osteoarthritis of left knee 08/30/2019 Arthritis of knee 05/03/2019 Overview (05/30/2019): Added automatically from request for surgery [id number] Assessment & Plan (02/15/2024 9:48 AM EDT): I instructed him in doing yoga ball squats with 10 pound weights 3 sets of 10 3 times a week. This will also help add resistance training to his workout. He states he is getting a Peloton which would also help with his cardiac risk Assessment & Plan (02/04/2021 2:49 PM EDT): Continue with PT/rehab and exercises Encounter for general adult medical examination with abnormal findings 03/15/2018 Overview (03/15/2018): Added automatically from request for surgery [id number] Assessment & Plan (10/03/2024 12:16 PM EST): Vaccines are up-to-date. He completes his healthcare proxy while he is here. He believes his proxy understands his wishes. Assessment & Plan (09/14/2023 9:41 AM EDT): Agrees to RSV as he has had a second grandchild on the way pneumococcal vaccine and Tdap today. Assessment & Plan (06/03/2021 9:22 AM EDT): He is not due for colorectal cancer screening till 2027. After informed consent discussion he agrees to PSA testing for prostate cancer. He is referred for varicella vaccine. After informed consent discussion he feels he does not he need hep C testing. Continue walking 12,000 steps a day and watching his weight. Vitamin d deficiency 06/03/2012 Assessment & Plan (10/21/2022 10:36 AM EST): Resume Vit D suppl 2000/d Assessment & Plan (11/25/2021 3:10 PM EST): Continue VIt D 1000/day Assessment & Plan (02/04/2021 3:11 PM EDT): Aching 2000 a day will check 25 hydroxy today. Class 2 obesity due to exces s calories without serious comorbidity with body mass index (BMI) of 35.0 to 35.9 in adult 05/12/2012 Assessment & Plan (10/03/2024 12:16 PM EST): Again counseled on limiting carbohydrates. Congratulated him on eliminating alcohol, and encouraged him to rethink and be mindful especially around sweets. Assessment & Plan (06/21/2024 2:22 PM EDT): Has done extremely well on bupropion 150 once a day Naltrexone and naltrexone 50 once a day. He attributes some of this to no longer drinking alcohol. The naltrexone. He is encouraged to continue Assessment & Plan (02/15/2024 9:49 AM EDT): He will resume the naltrexone. We discussed adding bupropion and he is very interested in trying this. Will start 150 once in the morning in addition to the naltrexone. Add resistance training. Try to make sure if he snacks he has protein. Assessment & Plan (09/14/2023 9:06 AM EDT): Will continue naltrexone. Check labs and US if positive for ALT> AST and consider bupropion Assessment & Plan (06/08/2023 9:36 AM EDT): Patient expresses interest in trying a GLP-1 agent. We reviewed the cost and implications. He feels that the naltrexone has helped and would like to continue on it. We also discussed the possibility of adding bupropion to this and he will consider. He is again advised not to skip meals and have soluble fiber with every meal. He admits to having salads at lunch and he will try to increase large salads at both lunch and dinner. He can add psyllium fiber before his exam which is in the morning as well. Continue at regular exercise. I also discussed with him the ability to track his intake in the past he has used food diaries or he can use the talk to track rea. We will make no changes at this time. Recheck labs in 3 months. Assessment & Plan (02/02/2023 10:01 AM EDT): He notes once he starts eating he overeats but he read it regularly. We discussed a variety of options and he agrees to try naltrexone 50 mg once a day. We discussed the side effects etc. he will follow-up with me via the portal in the next month or 2 to let me know if this is any significant impact. Assessment & Plan (10/21/2022 10:46 AM EST): Add psyllium before meals, one serving per meal. Add resistance training we agree that he will try to reach 6 pound weight loss over the next 3 months. Add resistance training and follow-up at that time Assessment & Plan (05/12/2022 10:00 AM EDT): We discussed a variety of approaches. 2 main factors seem to be apparent. The first is that he is having very little fruit and vegetable intake per day. We talked about increasing this as well as aloe adding psyllium fiber with a goal of 3 g before meals 3 times a day with large glass of water. I am hopeful this alone will have a significant impact on both improving his fiber intake and lowering his portion sizes which she self describes as large. In particular snacking on ordered seems to be an issue. He agrees that he will try to lose 5 pounds over the next 10 weeks and we will follow-up at that time. Assessment & Plan (02/04/2021 3:10 PM EDT): Add psyllium 1 tsp 3 times a day; limit CHO simple. Review at Follow up Ceryolyn impaction 05/12/2012 Rosacea 08/13/2008 Hyperlipidemia 08/13/2008 Assessment & Plan (02/15/2024 9:49 AM EDT): Currently on atorvastatin 10 and fenofibrate 160. Lipids are good but would like him to try to get both aerobic and resistance training beyond walking. Assessment & Plan (09/14/2023 9:39 AM EDT): We will again recheck lipid panel. We try to focus on the HDL possibly walking with a weighted vest etc. Assessment & Plan (06/08/2023 9:37 AM EDT): He is currently on atorvastatin 10 mg a day and often fenofibrate 160 mg a day. I suspect his hypertriglyceridemia in the past was based upon his high carbohydrate diet and would love to have him come off this. Will discuss at next visit pending his ability to lose some weight. And change his diet Assessment & Plan (10/21/2022 10:43 AM EST): Excelelnt change to atorvastatin; would like to fenofibrate. Goal is 6 lb over 3 months Assessment & Plan (05/12/2022 10:01 AM EDT): He is currently on simvastatin 40 mg a day and fenofibrate one half of 160 mg a day. I would ultimately like to get rid of the fibrate but I am concerned that the simvastatin may be influencing his difficulty losing weight. The plan we does DC that and switch to atorvastatin 10 a day. We will recheck LFTs and lipid panel shortly thereafter. Once he is doing well would consider stopping the fenofibrate and looking at what happens to his triglycerides on a fasting level. Assessment & Plan (11/25/2021 3:20 PM EST): Continues on Simvastatin 40 and fenofibrate 160 mg; offered to wean off the latter; will consider. His goal is to drop another 20 pounds in the next few months prior to his son's wedding. In the meantime he is going to try taking the medication every other day and we will retest his blood work in 6 months. Assessment & Plan (06/03/2021 9:23 AM EDT): As he continues to aggressively lose weight we discussed my feelings about taking him off the fenofibrate. If he gets down to 180 would consider having him take it every other day for 3 days then every third day for 3 days and then stop it. Risks of stopping abruptly are discussed. Continue simvastatin 40 a day. Assessment & Plan (02/04/2021 3:10 PM EDT): On simvastatin 40/day plus fenofibrate 160; will recheck labs; and consider coming off the latter. Hypertension 08/13/2008 Assessment & Plan (10/03/2024 12:17 PM EST): He has not been tracking his blood pressure at home and asking to please do so and monitor for 2 weeks and then send me an update. He is on lisinopril 40 mg a day plus Aldactazide. He has stopped taking alcohol and yet his blood pressure continues to run high. Will continue to track. Assessment & Plan (06/21/2024 2:07 PM EDT): Watch for hypotension as weight goes down. Assessment & Plan (02/15/2024 9:50 AM EDT): On Aldactazide and lisinopril 40 a day. Will see how his blood pressure runs in 1 month after starting the bupropion. Assessment & Plan (09/14/2023 9:39 AM EDT): We will not change at this time although I do feel interested in considering switching him to an ARB. He should track his systolic especially in the evening and follow-up through the portal. Assessment & Plan (06/08/2023 9:40 AM EDT): On lisinopril 40 mg/day and Adactazide. Exercising regularly. Will ask him to track it BID for one week and send report thru portal. Will monitor timi prior to next visit. Assessment & Plan (02/02/2023 10:02 AM EDT): I am concerned that he is on lisinopril 40 mg a day and Aldactazide 2525 a day and yet still has systolics running in the 1 60-1 70 range. I asked that he be seen by one of the cardiologists and he would like to be more aggressive with his dietary changes before we go that route. The plan be to revisit this in 3 months if since and he will track his blood pressure at home if symptoms or not improving will consider for further evaluation for secondary hypertension. Assessment & Plan (10/21/2022 10:36 AM EST): Continue lisinopril 50 plus dyazide. Timi BUN Creat good. Check home BP Assessment & Plan (05/12/2022 10:00 AM EDT): I am surprised on lisinopril to 40 mg a day plus Dyazide 37.525 his blood pressure here remains high. Our plan will be to have him check his blood pressure at least once a day at home after sitting in a chair with feet on the floor and back supported rating down blood pressure and pulse in time and doing this for 2 weeks and then send me the information through the portal. Assessment & Plan (11/25/2021 3:09 PM EST): Continue lisinopril 40 plus dyazide; timi WNL Assessment & Plan (06/03/2021 9:24 AM EDT): Is aggressive aerobic exercise and weight loss are doing well. We will continue on lisinopril 40 a day and Dyazide 37.525 once a day. Electrolytes and BUN/creatinine are stable. Recent ophthalmology visit is excellent. Assessment & Plan (02/04/2021 3:11 PM EDT): On lisinopril 40 a day plus Dyazide 37.525. No side effects. Will check labs Resolved Problems Problem Noted Date Diagnosed Date Resolved Date Left leg pain 06/21/2024 10/03/2024 Assessment & Plan (06/21/2024 2:03 PM EDT): DDX: spinal stenosis vs gastroc tear vs intermittent compartment; Refer to [facility] for further workup. Preoperative examination 08/22/2019 Primary osteoarthritis of right knee 03/13/2019 02/04/2021 Skin tag 02/25/2015 10/03/2019 Impaired fasting glucose 10/26/2013 Joint pain, knee 03/11/2010 10/03/2019 Gait instability 10/03/2019 Immunizations Name Administration Dates Next Due Covid-19, Pfizer, mRNA, Amite valent, PF 30 mcg/0.3 mL dose (for ages 12 and older) 02/18/2021,01/28/2021 Diphtheria and Tetanus Toxoi ds, Adsorbed for Pediatric Use 04/15/2001 INFLUENZA, SPLIT VIRUS, TRIVALENT, PF ,09/06/2012,09/01/2006,2004,11/21/2004 Influenza Virus Vaccine, Dee e, Attenuated, for Intranasal Use 09/12/2013 Influenza, Injectable, Quadr ivalent, Contains Preservative 10/03/2019,09/29/2018 Influenza, Injectable, Quadr ivalent, Preservative Free 09/24/2020,09/01/2019(Deferred: See Provider Order),06/28/2017 Influenza, Trivalent, MDV, Injectable 09/07/2016 Pneumococcal conjugate PCV20,polysaccharide CLQ925 conjugate, adjuvant, PF (Prevnar 20) 09/14/2023 Tetanus Toxoid, Reduced Diph theria Toxoid, and Acellular Pertussis Vaccine, Adsorbed 09/14/2023,05/12/2012 Zoster Vaccine Recombinant 10/08/2021,06/05/2021 Social History Tobacco Use Types Packs/Day Years Used Date Smoking Tobacco: Never Passive Smoke Exposure: Never Smokeless Tobacco: Never Tobacco Cessation:Counseling Given: Not Answered Comments:: Alcohol Use Standard Drinks/Week Comments Yes 0 (1 standard drink = 0.6 oz pur e alcohol) [facility] Utilities Answer Date Recorded In the past 12 months has [employer], gas, oil, or water [employer] threatened to shut off services in your [...] file Not on file Not on file Last Filed Vital Signs Vital Sign Reading Time Taken Comments Blood Pressure 140/92 10/03/2024 11:33 AM EST Pulse 78 10/03/2024 10:30 AM EST Temperature 36.8 ??C (98.2 ??F) 10/21/2022 10:[address] Respiratory Rate 18 09/01/2019 7:48 AM EDT Oxygen Saturation 98% 06/21/2024 1:11 PM EDT Inhaled Oxygen Concentration - - Weight 92.1 kg (203 lb) 10/03/2024 10:30 AM EST Height 175.3 cm (5' 9 ) 10/03/2024 10:30 AM EST Body Mass Index 29.98 10/03/2024 10:30 AM EST Plan of Treatment Not on file Medical Devices Implanted Type Area Software Development Test Engineer Device Identifier Shelf Expiration Date Model / Serial / Lot Cement Tobramycin Impreganated Simplex P - [id number] Implanted:Qty: 2 on 03/13/2019 by Gerry Clemons MD at [facility] Implant VICKY 07/15/2020 6197-9-001 / / [id number] Plug Stem Posterior Stabilized Tapered Tivanium Nexgen - [id number] Implanted:Qty: 1 on 03/13/2019 by Gerry Clemons MD at [facility] Implant Right: Knee Jossie 03/14/2029 5960-99 / / [id number] Component Patella Polyethylene 38mm Nexgen - [id number] Implanted:Qty: 1 on 03/13/2019 by Gerry Clemons MD at [facility] Implant Right: Knee Jossie 10/14/2026 / / [id number] Implant Femoral Cruciate Flex Option Right Size F Minus Nonsterile Latex Free Nexgen - [id number] Implanted:Qty: 1 on 03/13/2019 by Gerry Clemons MD at [facility] Implant Right: Knee Jossie 09/14/2027 / / [id number] Surface Articular Green Size 5-6 10mm Nexgen - [id number] Implanted:Qty: 1 on 03/13/2019 by Gerry Clemons MD at [facility] Implant Right: Knee Jossie 01/12/2027 90-5970-40 -10 / / [id number] Cement Tobramycin Impreganated Simplex P - [id number] Implanted:Qty: 2 on 08/30/2019 by Gerry Clemons MD at [facility] Implant Left: Knee VICKY 11/14/2020 6197-9-001 / / [id number] Plug Stem Posterior Stabilized Tapered Tivanium Nexgen - [id number] Implanted:Qty: 1 on 08/30/2019 by Gerry Clemons MD at [facility] Implant Left: Knee Jossie 01/12/2029 5960-99 / / [id number] Component Patella Polyethylene 38mm Nexgen - [id number] Implanted:Qty: 1 on 08/30/2019 by Gerry Clemons MD at [facility] Implant Left: Knee Jossie 01/12/2027 / / [id number] Surface Articular Green Size 5-6 10mm Nexgen - [id number] Implanted:Qty: 1 on 08/30/2019 by Gerry Clemons MD at [facility] Implant Left: Knee Jossie 08/14/2027 90-5970-40 -10 / / [id number] Baseplate Tibial Stemmed Tivanium/Pmma Precoat Size 5 Nexgen - [id number] Implanted:Qty: 1 on 03/13/2019 by Gerry Clemons MD at [facility] Plate Right: Knee Jossie 09/14/2028 / / [id number] Baseplate Tibial Stemmed Tivanium/Pmma Precoat Size 5 Nexgen - [id number] Implanted:Qty: 1 on 08/30/2019 by Gerry Clemons MD at [facility] Plate Left: Knee Jossie 01/12/2029 / / [id number] Cr-Flex Femoral Component Size F- Left Implanted:Qty: 1 on 08/30/2019 by Gerry Clemons MD at [facility] Left: Knee Jossie 08/14/2028 / [id number] Procedures * Due to [place] law, this organization might not be sharing negative HIV tests. Procedure Name Priority Date/Time Associated Diagnosis Comments HEPATITIS PANEL, ACUTE Routine 11/29/2024 11:10 AM EST Elevated LFTs Elevation of levels of liver transaminase levels COMPREHENSIVE METABOLIC PANEL Routine 11/29/2024 11:10 AM EST Elevated LFTs XR LUMBAR SPINE 4+ VIEWS INCLUDING FLEXION/EXTENSION Routine 10/19/2024 4:07 PM EST Low back pain, unspecified back pain laterality, unspecified chronicity, unspecified whether sciatica present HEPATITIS PANEL, ACUTE Routine 10/10/2024 9:42 AM EST CBC Routine 10/10/2024 9:42 AM EST Hypertension LIPID PANEL Routine 10/10/2024 9:42 AM EST Hypertension COMPREHENSIVE METABOLIC PANEL Routine 10/10/2024 9:42 AM EST Hypertension COLONOSCOPY 04/29/2018 from Last 3 Months or Most Recently Relevant to Health Maintenance Results * Due to [place] law, this organization might not be sharing negative HIV tests. * Hepatitis Panel, Acute (11/29/2024 11:10 AM EST) Only the most recent of2 resultswithin the time period is included. Hepatitis A IgM NON-REACT WILLIE NON-REACT WILLIE 11/29/2024 5:33 PM EST [facility] Hepatitis B Surface Antigen NON-REACT WILLIE NON-REACT WILLIE 11/29/2024 5:33 PM EST [facility] Hepatitis B Core Antibody NON-REACT WILLIE NON-REACT WILLIE 11/29/2024 5:33 PM EST [facility] Hepatitis C Antibody NON-REACT WILLIE NON-REACT WILLIE 11/29/2024 5:33 PM EST [facility] Comment: HCV antibody was non-reactive. There is no laboratory evidence of HCV infection. In most cases, no further action is required. However, if recent HCV exposure is suspected, a test for HCV RNA (test code 93048) is suggested. For additional information please refer to http://[employer].Wrike/faq/XIY78a5 (This link is being provided for informational/ educational purposes only.) For additional information, please refer to http://[employer].Wrike/faq/CSY783 (This link is being provided for informational/ educational purposes only.) For additional information, please refer to http://[employer].Wrike/faq/FLH271 (This link is being provided for informational/ educational purposes only.) For additional information, please refer to http://[employer].Wrike/faq/RWD821 (This link is being provided for informational/ educational purposes only.) Blood Structure of peripheral vein / Unknown 11/29/2024 11:10 AM EST 11/29/2024 3:44 PM EST Narrative [facility] - 11/29/2024 5:39 PM EST FASTING:NO us Deangelo Zabala MD LAB BLOOD ORDERABLES Final Res ult [facility] [address] [facility] [address] [facility] [address], [place] [address], [facility] [address] [place] [id number] * Comprehensive metabolic panel (11/29/2024 11:10 AM EST) Only the most recent of2 resultswithin the time period is included. Glucose 95 65 - 139 mg/dL 11/29/2024 5:37 PM EST [employer] [facility] Comment: ? Non-fasting reference interval BUN 20 7 - 25 mg/dL 11/29/2024 5:37 PM EST [facility] [place] [facility] Creatinine 0.78 0.70 - 1.35 mg/dL 11/29/2024 5:37 PM EST [facility] eGFR 98 > OR = 60 mL/min/1. 73m2 11/29/2024 5:37 PM EST [facility] Bun/Creatinine Ratio SEE NOTE: 6 - 22 (calc) 11/29/2024 5:37 PM EST [facility] Comment: ?? Not Reported: BUN and Creatinine are within ?? reference range. ? Sodium 136 135 - 146 mmol/L 11/29/2024 5:37 PM EST [facility] Potassium 4.3 3.5 - 5.3 mmol/L 11/29/2024 5:37 PM EST [facility] [place] [facility] Chloride 100 98 - 110 mmol/L 11/29/2024 5:37 PM EST [facility] [place] [facility] Carbon Dioxide 29 20 - 32 mmol/L 11/29/2024 5:37 PM EST [facility] Calcium 10.0 8.6 - 10.3 mg/dL 11/29/2024 5:37 PM STATS Group [facility] Protein, Total 7.4 6.1 - 8.1 g/dL 11/29/2024 5:37 PM EST [facility] Albumin 4.8 3.6 - 5.1 g/dL 11/29/2024 5:37 PM EST [facility] [place] [facility] Globulin 2.6 1.9 - 3.7 g/dL (calc) 11/29/2024 5:37 PM EST [facility] [place] [facility] Albumin/Globuli n Ratio 1.8 1.0 - 2.5 (calc) 11/29/2024 5:37 PM EST [facility] [place] [facility] Bilirubin, Total 0.4 0.2 - 1.2 mg/dL 11/29/2024 5:37 PM EST [facility] Alkaline Phosphatase 64 35 - 144 U/L 11/29/2024 5:37 PM EST [facility] AST 32 10 - 35 U/L 11/29/2024 5:37 PM EST [facility] ALT 39 9 - 46 U/L 11/29/2024 5:37 PM EST [facility] Blood Structure of peripheral vein / Unknown 11/29/2024 11:10 AM EST 11/29/2024 4:07 PM EST Narrative [facility] - 11/29/2024 5:39 PM EST FASTING:NO us Deangelo Zabala MD LAB BLOOD ORDERABLES Final Res ult [facility] [address] [facility] [address] [address], [place] [address], [place] [phone] [facility] [address] [place] [address] * XR Lumbar Spine 4+ Views Including Flexion/Extension (10/19/2024 4:07 PM EST) Anatomical Region Laterality Modality Spine, L-spine Computed Radiogr aphy 10/21/2024 11:3 3 AM EST Impressions 10/21/2024 11:36 AM EST FINDINGS/IMPRESSION: Grade 1 anterolisthesis of L4-L5 increases with flexion and decreases with extension. ??No radiographic evidence of acute vertebral body compression fracture. ??Multilevel mild to moderate disc degeneration. ??Multilevel facet arthropathy, most pronounced within the lower lumbar spine. ??Multilevel intraspinous degeneration. ??Sacroiliac joints are congruent. ??The sacrum is obscured by overlying soft tissue structures. If this radiology report contains a blank impression section, it is an incomplete radiology report. ??Please contact the interpreting radiologist or applicable radiology division as soon as possible to obtain the completed interpretation. ? Workstation ID: [id number] Narrative 10/21/2024 11:36 AM EST COMPARISON: MRI from 09/10/2024. ?? Resulting Agency Comment [id number] Procedure Note Alexander Jimenez MD - 10/21/2024 COMPARISON: MRI from 09/10/2024. IMPRESSION: FINDINGS/IMPRESSION: Grade 1 anterolisthesis of L4-L5 increases with flexion and decreases withextension. No radiographic evidence of acute vertebral body compressionfracture. Multilevel mild to moderate disc degeneration. Multilevelfacet arthropathy, most pronounced within the lower lumbar spine.Multilevel intraspinous degeneration. Sacroiliac joints are congruent.The sacrum is obscured by overlying soft tissue structures. If this radiology report contains a blank impression section, it is anincomplete radiology report. Please contact the interpreting radiologistor applicable radiology division as soon as possible to obtain thecompleted interpretation. Workstation ID: [id number] us Reddy Hinojosa MD IMG XR PROCEDURES Final Res ult * (ABNORMAL) CBC (10/10/2024 9:42 AM EST) White Blood Cell Count 12.3(H) 3.8 - 10.8 Thousand/ uL 10/10/2024 8:45 PM EST [facility] [employer] Red Blood Cell Count 5.38 4.20 - 5.80 Million/u L 10/10/2024 8:45 PM EST [facility] [facility] Hemoglobin 16.3 13.2 - 17.1 g/dL 10/10/2024 8:45 PM EST [facility] [facility] Hematocrit 48.8 38.5 - 50.0 % 10/10/2024 8:45 PM EST [facility] [facility] MCV 90.7 80.0 - 100.0 fL 10/10/2024 8:45 PM EST [facility] [employer] [facility] MCH 30.3 27.0 - 33.0 pg 10/10/2024 8:45 PM EST [facility] [facility] MCHC 33.4 32.0 - 36.0 g/dL 10/10/2024 8:45 PM EST [facility] Comment: For adults, a slight decrease in the calculated MCHC value (in the range of 30 to 32 g/dL) is most likely not clinically significant; however, it should be interpreted with caution in correlation with other red cell parameters and the patient's clinical condition. RDW 12.1 11.0 - 15.0 % 10/10/2024 8:45 PM EST [facility] Platelet Count 327 140 - 400 Thousand/ uL 10/10/2024 8:45 PM EST [facility] MPV 9.9 7.5 - 12.5 fL 10/10/2024 8:45 PM EST [facility] Blood Structure of peripheral vein / Unknown 10/10/2024 9:42 AM EST 10/10/2024 4:08 PM EST Narrative [facility] - 10/11/2024 3:59 PM EST FASTING:YES us Deangelo Zabala MD LAB BLOOD ORDERABLES Final Res ult [facility] [address] [facility] [address], [place] [address], [place] [phone] [facility] [address] [place] [address] * (ABNORMAL) Lipid panel (10/10/2024 9:42 AM EST) Cholesterol, Total 175 <200 mg/dL 10/10/2024 7:38 PM EST [facility] HDL Cholesterol 48 > OR = 40 mg/dL 10/10/2024 7:38 PM EST [facility] Triglycerides 103 <150 mg/dL 10/10/2024 7:38 PM EST [facility] LDL-Cholesterol 107(H) mg/dL (calc) 10/10/2024 7:38 PM EST [facility] Comment: Reference range: <100 Desirable range <100 mg/dL for primary prevention; ?? <70 mg/dL for patients with CHD or diabetic patients with > or = 2 CHD risk factors. LDL-C is now calculated using the Kinga calculation, which is a validated novel method providing better accuracy than the Friedewald equation in the estimation of LDL-C. Ricardo MAURICIO et al. DARY. 2013;310(19): 4887-4057 (http://education.[employer]/faq/TBX760) Chol/HDLC Ratio 3.6 <5.0 (calc) 10/10/2024 7:38 PM EST [facility] Non HDL Cholesterol 127 <130 mg/dL (calc) 10/10/2024 7:38 PM EST [facility] [facility] Comment: For patients with diabetes plus 1 major ASCVD risk factor, treating to a non-HDL-C goal of <100 mg/dL (LDL-C of <70 mg/dL) is considered a therapeutic option. Blood Structure of peripheral vein / Unknown 10/10/2024 9:42 AM EST 10/10/2024 4:51 PM EST Narrative [facility] - 10/11/2024 3:59 PM EST FASTING:YES us Deangelo Zabala MD LAB BLOOD ORDERABLES Final Res ult [facility] [address] [facility] [address], [place] [address], [place] [phone] [facility] [address] [place] [address] * COLONOSCOPY (04/29/2018) Narrative Procedure Note Vasquez Rodriguez MD - 04/29/2018 12:56 PM EDT Gastroenterology Patient Name: Yoshi Meyres Procedure Date: 04/29/2018 12:56 PM Date of : 1960 Admit Type: Outpatient Age: 57 Room: [place] [address] Gender: Male Note Status: Finalized Attending MD: Vasquez Rodriguez MD Procedure: Colonoscopy Indications: Screening for colorectal malignant neoplasm Comorbidities Providers: Vasquez Rodriguez MD Referring MD: Prasanth Trevizo MD (Referring MD) Requesting Provider: Medicines: Midazolam 5 mg IV, Fentanyl 75 micrograms IV Complications: No immediate complications. Estimated Blood Loss: Estimated blood loss: none. Procedure: After I obtained informed consent, the scope was passed under direct vision. Throughout the procedure, the patient's blood pressure, pulse, and oxygen saturations were monitored continuously. The Colonoscope was introduced through the anus and advanced to theterminal ileum. The colonoscopy was performed withoutdifficulty. The patient tolerated the procedure well. Findings: The entire examined colon appeared normal. Impression: - The entire examined colon is normal. - No specimens collected. Recommendation: - Repeat colonoscopy in 10 years for screeningpurposes. - Return to primary care physician PRN. Vasquez Rodriguez MD 04/29/2018 2:15:10 PM This report has been signed electronically. Number of Addenda: 0 Note Initiated On: 04/29/2018 12:56 PM us Vasquez Rodriguez MD PROVATION PROCEDURES Final Re sult from Last 3 Months or Most Recently Relevant to Health Maintenance Insurance MEDICARE BCBS MCR SUPP Advance Directives Documents on File Type Date Recorded Patient Factory Hand Expl [facility] Health Care Proxy 10/03/2024 12:58 PM Advance Directive 10/04/2019 1:25 PM * Full Code (Latest Code Status on File) Date Activated Date Inactivated Comments 08/30/2019 11:03 PM 09/01/2019 1:56 PM * Presumed Full Code Date Activated Date Inactivated Comments 08/30/2019 6:20 AM 08/30/2019 11:03 PM * Full Code Date Activated Date Inactivated Comments 03/13/2019 2:32 PM 03/15/2019 4:30 PM * Full Code Date Activated Date Inactivated Comments 03/13/2019 7:07 AM 03/13/2019 2:32 PM Care Teams Tour Consultant Relationship Specialty Start Date End Date Deangelo Zabala MD [address] [place] [phone] PCP - General Family Medicine 03/12/20
--- OUTSIDE RECORDS SUMMARY | 2024-12-14 10:28 | XMS_ITS | Encounter Summary ---
Author Organization [facility] Address [address] [place] [address] Care Team Providers Care Materials Planner/Production Planner Name Role Phone Deangelo Zabala MD Primary Care Provider Encounter Details Date Type Department Care Team (Late st Contact Info) Description 10/20/2024 myChart Message [facility] [address] [place] [address] [phone] Deangelo Zabala MD [address] [place] [phone] called again Social History Tobacco Use Types Packs/Day Years Used Date Smoking Tobacco: Never Passive Smoke Exposure: Never Smokeless Tobacco: Never Comments:: Alcohol Use Standard Drinks/Week Comments Yes 0 (1 standard drink = 0.6 oz pur e alcohol) [facility] Utilities Answer Date Recorded In the past 12 months has e electric, gas, oil, or water company threatened to shut off services in your [...] on filedocumented in this encounter Care Teams Materials Planner/Production Planner Relationship Specialty Start Date End Date Deangelo Zabala MD [address] [place] [phone] PCP - General Family Medicine 03/12/20 documented as of this encounter
--- OUTSIDE RECORDS SUMMARY | 2024-12-14 10:28 | XMS_ITS | Clinical Summary ---
Author Organization [facility] Address [address] [place] [address] Phone Care Team Providers Care Patents Examiner Name Role Phone Unavailable Unavailable Conditions or Problems No information available. Medications No information available. Medications Administered No information available. Allergies, Adverse Reactions, Alerts No information available. Results No information available. Plan of Care No information available. Procedures No information available. Vital Signs No information available. Immunizations No information available. Advance Directives No information available.
--- OUTSIDE RECORDS SUMMARY | 2024-12-14 10:28 | XMS_ITS | Clinical Summary ---
Author Organization [facility] Address [address] [place] [address] Care Team Providers Care Industrial Hygenist Name Role Phone Deangelo Zabala MD Primary Care Provider [phone] Allergies Active Allergy Reactions Criticality Noted Date [...] Diagnosed Date Spinal stenosis of lumbar re johnathon with neurogenic claudication 10/03/2024 Assessment & Plan [...] Rec he stop smoking and move to [facility] Assessment & Plan (06/08/2023 9:41 AM EDT): [...] going to the group sessions at the [facility] Low serum parathyroid hormone (PTH) 03/03/2021 Assessment [...] (05/30/2019): Added automatically from request for surgery [id number] Assessment & Plan (02/15/2024 9:48 AM EDT): [...] (03/15/2018): Added automatically from request for surgery [id number] Assessment & Plan (10/03/2024 12:16 PM EST): [...] limit CHO simple. Review at Follow up Cerumen impaction 05/12/2012 Rosacea 08/13/2008 Hyperlipidemia 08/13/2008 Assessment [...] and send report thru portal. Will monitor lytes prior to next visit. Assessment & Plan [...] pain, knee 03/11/2010 10/03/2019 Gait instability 10/03/2019 Encounters Date Type Department Care Team Description 12/05/[address] [phone] Deangelo Zabala MD 11/30/2024 myChart Message [address] [phone] Deangelo Zabala MD Labs 10/31/2024 myChart Message [address] [phone] Deangelo Zabala MD labs 10/31/2024 Orders Only [address] [phone] Deangelo Zabala MD Elevated LFTs (Primary Dx); Elevation of levels of liver transaminase levels 10/30/2024 Telephone [facility] [address] [phone] Vicki Mcnamara [place] 10/28/[address] [phone] Deangelo Zabala MD Hyperlipidemia, unspecified hyperlipidemia type; Hypertension, unspecified type 10/28/[address] [address] Deangelo Zabala MD 10/20/2024 myChart Message [address] [phone] Deangelo Zabala MD called again 10/19/2024 3:53 PM EST - 10/19/2024 11:59 PM EST Hospital Encounter [facility] [address] [place] [address] Reddy Hinojosa MD Low back pain, unspecified back pain laterality, unspecified chronicity, unspecified whether sciatica present Discharge Disposition: Home or Self Care () 10/19/2024 3:00 PM EST Office Visit [facility] [address] [place] [address] Reddy Hinojosa MD Spinal stenosis of lumbar region with neurogenic claudication (Primary Dx) 10/19/2024 Orders Only [address] [phone] Deangelo Zabala MD 10/11/2024 Orders Only [address] [phone] Deangelo Zabala MD Elevated LFTs (Primary Dx); Elevation of levels of liver transaminase levels 10/03/2024 10:30 AM EST Office Visit [address] [phone] Deangelo Zabala MD Spinal stenosis of lumbar region with neurogenic claudication (Primary Dx); Encounter for general adult medical examination with abnormal findings; Class 2 obesity due to excess calories without serious comorbidity with body mass index (BMI) of 35.0 to 35.9 in adult; Bilateral impacted cerumen; Hypertension 09/14/2024 9:00 AM EDT Follow-Up [facility] [address], [place] [phone] Tom Pardo MD Spinal stenosis of lumbar region with neurogenic claudication (Primary Dx) from Last 3 Months Immunizations Name Administration Dates Next Due Covid-19, Pfizer, mRNA, Saunders valent, PF 30 mcg/0.3 mL dose (for ages 12 and older) 02/18/2021,01/28/2021 Diphtheria and Tetanus Toxoi ds, Adsorbed for Pediatric Use 04/15/2001 INFLUENZA, SPLIT VIRUS, TRIVALENT, PF ,09/06/2012,09/01/2006,2004,11/21/2004 Influenza Virus Vaccine, Dee e, Attenuated, for Intranasal Use 09/12/2013 Influenza, Injectable, Quadr ivalent, Contains Preservative 10/03/2019,09/29/2018 Influenza, Injectable, Quadr ivalent, Preservative Free 09/24/2020,09/01/2019(Deferred: See Provider Order),06/28/2017 Influenza, Trivalent, MDV, Injectable 09/07/2016 Pneumococcal conjugate PCV20,polysaccharide [id number] conjugate, adjuvant, PF (Prevnar 20) 09/14/2023 Tetanus Toxoid, Reduced Diph theria Toxoid, and Acellular Pertussis Vaccine, Adsorbed 09/14/2023,05/12/2012 Zoster Vaccine Recombinant 10/08/2021,06/05/2021 Family History Medical History Relation Name Comments No Known Problems Father No Known Problems Mother Other Other 1 Family History of hypertension Other Other 2 Family History of hyperlipidemia No Known Problems Sister No Known Problems Son 1 No Known Problems Son 2 Relation Name Status Comments Father (Age 92) Mother (Age 92) Other 1 Other 2 Sister Alive Son 1 Alive Son 2 Alive Social History Tobacco Use Types Packs/Day Years Used Date Smoking Tobacco: Never Passive Smoke Exposure: Never Smokeless Tobacco: Never Tobacco Cessation:Counseling Given: Not Answered Comments:: Alcohol Use Standard Drinks/Week Comments Yes 0 (1 standard drink = 0.6 oz pur e alcohol) [facility] Utilities Answer Date Recorded In the past 12 months has th e electric, gas, oil, or water company [...] 10/03/2024 10:30 AM EST Plan of Treatment Health Maintenance Due Date Last Done Comments Alcohol/Substance Use Screening 11/15/2024 Depression Screening and Follow-Up 11/15/2024 09/26/2024 Fall Risk Screening 11/15/2024 Health Care Proxy Review 11/15/2024 Social Drivers of Health Annual Screening 11/15/2024 06/17/2024 Basic Metabolic Panel 11/29/2025 11/29/2024 , 10/10/2024, 09/15/2023, Additional history exists Colonoscopy 04/29/2028 04/29/2018, 04/29/2018 RSV Vaccine (60+ years old and patients) (1 - 1-dose 75+ series) 2033 DTaP,Tdap,and Td Vaccines (4 - Td or Tdap) 09/14/2033 09/14/2023, 05/12/2012, 04/15/2001 Tobacco Screening 11/15/2042 06/21/2024 Zoster Vaccines Completed 10/08/2021, 06/05/2021 Pneumococcal Vaccine: 65+ Years Completed 09/14/2023 COVID-19 Vaccine Completed 08/05/2024, , 10/04/2022, Additional history exists Influenza Vaccine Discontinued 08/05/2024, , 10/04/2022, Additional history exists Hepatitis C Screening Discontinued 11/29/2024, 024 Hepatitis B Vaccines Aged Out No long er eligible based on patient's age to complete this topic Medical Devices Implanted Type Area Manager Disaster Recovery Device Identifier Shelf Expiration Date Model / Serial / Lot Cement Tobramycin Impreganated Simplex P - [id number] Implanted:Qty: 2 on 03/13/2019 by Gerry Clemons MD at [facility] Implant VICKY 07/15/2020 6197-9-001 / / [id number] Plug Stem Posterior Stabilized Tapered Tivanium Nexgen - [id number] Implanted:Qty: 1 on 03/13/2019 by Gerry Clemons MD at [facility] Implant Right: Knee Jossie 03/14/2029 5960-99 / / [id number] Component Patella Polyethylene 38mm Nexgen - [id number] Implanted:Qty: 1 on 03/13/2019 by Gerry Clemons MD at [facility] Implant Right: Knee Jossie 10/14/2026 / / [id number] Implant Femoral Cruciate Flex Option Right Size F Minus Nonsterile Latex Free Nexgen - [id number] Implanted:Qty: 1 on 03/13/2019 by Gerry Clemons MD at [facility] Implant Right: Knee Jossie 09/14/2027 / / [id number] Surface Articular Green Size 5-6 10mm Nexgen - [id number] Implanted:Qty: 1 on 03/13/2019 by Gerry Clemons MD at [facility] Implant Right: Knee Jossie 01/12/2027 90-5970-40 -10 / / [id number] Cement Tobramycin Impreganated Simplex P - [id number] Implanted:Qty: 2 on 08/30/2019 by Gerry Clemons MD at [facility] Implant Left: Knee VICKY 11/14/2020 6197-9-001 / / [id number] Plug Stem Posterior Stabilized Tapered Tivanium Nexgen - [id number] Implanted:Qty: 1 on 08/30/2019 by Gerry Clemons MD at [facility] Implant Left: Knee Jossie 01/12/2029 5960-99 / / [id number] Component Patella Polyethylene 38mm Nexgen - [id number] Implanted:Qty: 1 on 08/30/2019 by Gerry Clemons MD at [facility] Implant Left: Knee Jossie 01/12/2027 / / [id number] Surface Articular Green Size 5-6 10mm Nexgen - [id number] Implanted:Qty: 1 on 08/30/2019 by Gerry Clemons MD at [facility] Implant Left: Knee Jossie 08/14/2027 90-5970-40 -10 / / [id number] Baseplate Tibial Stemmed Tivanium/Pmma Precoat Size 5 Nexgen - [id number] Implanted:Qty: 1 on 03/13/2019 by Gerry Clemons MD at [facility] Plate Right: Knee Jossie 09/14/2028 / / [id number] Baseplate Tibial Stemmed Tivanium/Pmma Precoat Size 5 Nexgen - [id number] Implanted:Qty: 1 on 08/30/2019 by Gerry Clemons MD at [facility] Plate Left: Knee Jossie 01/12/2029 / [id number] Cr-Flex Femoral Component Size F- Left Implanted:Qty: 1 on 08/30/2019 by Gerry Clemons MD at [facility] Left: Knee Jossie 08/14/2028 / / [id number] Procedures * Due to [facility] law, this organization might not be sharing [...] to Health Maintenance Results * Due to [place] [employer] law, this organization might not be sharing negative HIV tests. * Hepatitis Panel, Acute (11/29/2024 11:10 AM EST) Only the most recent of2 resultswithin the time period is included. Hepatitis A IgM NON-REACT WILLIE NON-REACT WILLIE 11/29/2024 5:33 PM EST [facility] Hepatitis B Surface Antigen NON-REACT WILLIE NON-REACT WILLIE 11/29/2024 5:33 PM EST [facility] Hepatitis B Core Antibody NON-REACT WILLIE NON-REACT WILLIE 11/29/2024 5:33 PM EST [facility] Hepatitis C Antibody NON-REACT WILLIE NON-REACT WILLIE 11/29/2024 5:33 PM EST [employer] [facility] Comment: HCV antibody was non-reactive. There is no laboratory evidence of HCV infection. In most cases, no further action is required. However, if recent HCV exposure is suspected, a test for HCV RNA (test code 43825) is suggested. For additional information please refer to http://ibabybox.Grabbit/faq/QTL61h1 (This link is being provided for informational/ educational purposes only.) For additional information, please refer to http://ibabybox.Grabbit/faq/ZYV766 (This link is being provided for informational/ educational purposes only.) For additional information, please refer to http://Novatris/faq/VPV190 (This link is being provided for informational/ educational purposes only.) For additional information, please refer to http://ibabybox.Grabbit/faq/NCK932 (This link is being provided for informational/ educational purposes only.) Blood Structure of peripheral vein / Unknown 11/29/2024 11:10 AM EST 11/29/2024 3:44 PM EST Narrative [facility] - 11/29/2024 5:39 PM EST FASTING:NO us Deangelo Zabala MD LAB BLOOD ORDERABLES Final Res ult [facility] [address], [place] [address], [employer] [facility] [address] [place] [address] * Comprehensive metabolic panel (11/29/2024 11:10 AM EST) Only the most recent of2 resultswithin the time period is included. [facility] Glucose 95 65 - 139 mg/dL 11/29/2024 5:37 PM EST [employer] [facility] Comment: ? Non-fasting reference interval BUN 20 7 - 25 mg/dL 11/29/2024 5:37 PM [email or web address] [facility] Creatinine 0.78 0.70 - 1.35 mg/dL 11/29/2024 5:37 PM [email or web address] eGFR 98 > OR = 60 mL/min/1. 73m2 11/29/2024 5:37 PM [email or web address] Bun/Creatinine Ratio SEE NOTE: 6 - 22 (calc) 11/29/2024 5:37 PM [email or web address] [facility] Comment: ?? Not Reported: BUN and Creatinine are within ?? reference range. ? Sodium 136 135 - 146 mmol/L 11/29/2024 5:37 PM [email or web address] Potassium 4.3 3.5 - 5.3 mmol/L 11/29/2024 5:37 PM [email or web address] Chloride 100 98 - 110 mmol/L 11/29/2024 5:37 PM [email or web address] Carbon Dioxide 29 20 - 32 mmol/L 11/29/2024 5:37 PM [email or web address] Calcium 10.0 8.6 - 10.3 mg/dL 11/29/2024 5:37 PM [email or web address] [facility] Protein, Total 7.4 6.1 - 8.1 g/dL 11/29/2024 5:37 PM [email or web address] [facility] Albumin 4.8 3.6 - 5.1 g/dL 11/29/2024 5:37 PM [email or web address] [facility] Globulin 2.6 1.9 - 3.7 g/dL (calc) 11/29/2024 5:37 PM [email or web address] [facility] Albumin/Globuli n Ratio 1.8 1.0 - 2.5 (calc) 11/29/2024 5:37 PM [email or web address] [facility] Bilirubin, Total 0.4 0.2 - 1.2 mg/dL 11/29/2024 5:37 PM [email or web address] [facility] Alkaline Phosphatase 64 35 - 144 U/L 11/29/2024 5:37 PM [email or web address] [facility] AST 32 10 - 35 U/L 11/29/2024 5:37 PM [email or web address] [facility] ALT 39 9 - 46 U/L 11/29/2024 5:37 PM [email or web address] [facility] Blood Structure of peripheral vein / Unknown 11/29/2024 11:10 AM EST 11/29/2024 4:07 PM EST Narrative [facility] - 11/29/2024 5:39 PM EST FASTING:NO us Deangelo Zabala MD LAB BLOOD ORDERABLES Final Res ult [facility] [address], [place] [address], [place] [phone] [employer] [address] [place] [address] * XR Lumbar Spine 4+ Views Including [...] obtain the completed interpretation. ? Workstation ID: [id number] Narrative 10/21/2024 11:36 AM EST COMPARISON: MRI from 09/10/2024. ?? Resulting Agency Comment [id number] Procedure Note Alexander Jimenez MD - 10/21/2024 [...] possible to obtain thecompleted interpretation. Workstation ID: [id number] us Reddy Hinojosa MD IMG XR PROCEDURES Final Res ult * (ABNORMAL) CBC (10/10/2024 9:42 AM EST) White Blood Cell Count 12.3(H) 3.8 - 10.8 Thousand/ uL 10/10/2024 8:45 PM EST [facility] Red Blood Cell Count 5.38 4.20 - 5.80 Million/u L 10/10/2024 8:45 PM EST [facility] Hemoglobin 16.3 13.2 - 17.1 g/dL 10/10/2024 8:45 PM EST [facility] Hematocrit 48.8 38.5 - 50.0 % 10/10/2024 8:45 PM EST [facility] MCV 90.7 80.0 - 100.0 fL 10/10/2024 8:45 PM EST [facility] MCH 30.3 27.0 - 33.0 pg 10/10/2024 8:45 PM EST [facility] MCHC 33.4 32.0 - 36.0 g/dL 10/10/2024 8:45 PM EST [facility] Comment: For adults, a slight decrease in the calculated MCHC value (in the range of 30 to 32 g/dL) is most likely not clinically significant; however, it should be interpreted with caution in correlation with other red cell parameters and the patient's clinical condition. RDW 12.1 11.0 - 15.0 % 10/10/2024 8:45 PM EST [facility] Platelet Count 327 140 - 400 Thousand/ uL 10/10/2024 8:45 PM EST [facility] MPV 9.9 7.5 - 12.5 fL 10/10/2024 8:45 PM EST [facility] Blood Structure of peripheral vein / Unknown 10/10/2024 9:42 AM EST 10/10/2024 4:08 PM EST Narrative [facility] - 10/11/2024 3:59 PM EST FASTING:YES us Deangelo Zabala MD LAB BLOOD ORDERABLES Final Res ult [facility] [address] [facility] [address], [place] [address], [place] [phone] [employer] [facility] [address] [place] [address] * (ABNORMAL) Lipid panel (10/10/2024 9:42 AM EST) Cholesterol, Total 175 <200 mg/dL 10/10/2024 7:38 PM EST [facility] HDL Cholesterol 48 > OR = 40 mg/dL 10/10/2024 7:38 PM EST [facility] Triglycerides 103 <150 mg/dL 10/10/2024 7:38 PM EST [facility] LDL-Cholesterol 107(H) mg/dL (calc) 10/10/2024 7:38 PM [facility] Comment: Reference range: <100 Desirable range <100 mg/dL for primary prevention; ?? <70 mg/dL for patients with CHD or diabetic patients with > or = 2 CHD risk factors. LDL-C is now calculated using the Ricardo-Jignesh calculation, which is a validated novel method providing better accuracy than the Friedewald equation in the estimation of LDL-C. Ricardo MAURICIO et al. DARY. 2013;310(19): 4250-6343 (http://education.auctionpoint.ExRo Technologies/faq/LJH348) Chol/HDLC Ratio 3.6 <5.0 (calc) 10/10/2024 7:38 PM EST [facility] Non HDL Cholesterol 127 <130 mg/dL (calc) 10/10/2024 7:38 PM [facility] Comment: For patients with diabetes plus 1 [...] ORDERABLES Final Res ult [facility] [address] [facility] [address], [place] [address], [place] [phone] [facility] [address] [place] [address] * COLONOSCOPY (04/29/2018) Narrative Procedure Note Vasquez Rodriguez MD - 04/29/2018 12:56 PM EDT Gastroenterology Patient Name: Yoshi Meyers Procedure Date: 04/29/2018 12:56 PM Date of : 1960 Admit Type: Outpatient Age: 57 Room: [place] [id number] Gender: Male Note Status: Finalized Attending MD: [...] 0 Note Initiated On: 04/29/2018 12:56 PM Vasquez Rodriguez MD PROVATION PROCEDURES Final Re sult from Last 3 Months or Most Recently Relevant to Health Maintenance Insurance MEDICARE [facility] Advance Directives Documents on File Type Date Recorded Patient [employer] Tube Tester Expl anation Health Care Proxy 10/03/2024 12:58 PM Advance [...] 7:07 AM 03/13/2019 2:32 PM Care Teams Industrial Hygenist Relationship Specialty Start Date End Date Deangelo Zabala MD [address] [place] [phone] PCP - General Family Medicine 03/12/20
--- OUTSIDE RECORDS SUMMARY | 2024-12-14 10:28 | XMS_ITS | Clinical Summary ---
Author Organization [facility] Address [address] [place] [address] Care Team Providers Care Buffing Line Set Up Worker Name Role Phone Pcp, No Primary Care Provider [phone] Medications No known medications Immunizations Name Administration Dates Next Due Fluad Quadrivalent High Dose (65+ years) 023 Moderna Spikevax Covid-19 SDV (12+years) 023 Social History Tobacco Use Types Packs/Day Years Used Date Smoking Tobacco: Never Assessed Sex and Gender Information Value Date Recorded Sex Assigned at Not on file Legal Sex Male 12:02 PM EDT Gender Identity Not on file Sexual Orientation Not on file Plan of Treatment Health Maintenance Due Date Last Done Comments Colorectal Cancer: COLONOSCO PY Screening every 10 yrs (or Modifier) 1960 Depression: Screening Annual ly using PHQ-2/9 in Adults 18 yrs or above (or HM Modifier)([facility]) 1976 Hepatitis C Virus Infection in Adolescents and Adults: Screening (or Modifier) ([facility]) 1976 SDOH Screening Reminder: Ashly cantu for all adults ([facility]) 1976 Tobacco Smoking Cessation: i n Adults excluding Women: Behavioral and Pharmacotherapy Interventions ([facility]) 1976 Colorectal Cancer Screening 45 -75 Yrs (or HM Modifier) 2003 Colorectal Cancer: FLEXIBLE SIGMOIDOSCOPY Screening every 5 yrs 2003 Colorectal Cancer: Fecal Immunochemical Test (FIT) Annually [facility] 2003 Colorectal Cancer: High-sens itivity gFOBT Screening Annually [facility] 2003 Colorectal Cancer: Stool Col oguard Screening every 3 yrs 2003 Colorectal Cancer:CT Colonog caryl Screening every 5 yrs 2003 DTaP/Tdap/Td Vaccines ([facility]) (2 - Td or Tdap) 05/12/2022 05/12/2012, 04/15/2001 Pneumococcal Vaccination Scr eening: Patients 65+ yrs of age ([facility]) (1 of 1 - PCV) 2023 Flu Vaccination: Ages 65+: Y early High Dose Recommended (or Modifier)([facility]) 06/15/2024 08/31/2023, 08/2020, 06/28/2017 COVID-19 Vaccine Screening: Initial Series and Booster Status ([facility]) ( season) 2024 08/31/2023, 02/18/2021, 01/28/2021 Lipid Screening: Every 5 yrs for Men aged 35+ (or HM Modifier) ([facility]) 07/05/2028 07/05/2023 RSV Vaccines (1 - 1-dose 75+ series) 2033 Zoster/Shingles Vaccine Seri es Screening: Adults aged 18+ yrs (or HM Modifiers)([facility]) Completed 10/08/2021, 06/05/2021 Medical Devices Not on file Insurance [employer] Care Teams Buffing Line Set Up Worker Relationship Specialty Start Date End Date Pcp, No PCP - General Family Medicine 08/31/23
--- OUTSIDE RECORDS SUMMARY | 2024-12-14 10:28 | XMS_ITS | Encounter Summary ---
Author Organization [facility] Address [address] [place] [address] Care Team Providers Care Surveyor Chain Helper Name Role Phone Deangelo Zabala MD Primary Care Provider [phone] Encounter Details Date Type Department Care Team (Late st Contact Info) Description 10/31/2024 myChart Message [facility] [address] [place] [phone] Deangelo Zabala MD [address] [place] [phone] labs Social History Tobacco Use Types Packs/Day Years Used Date Smoking Tobacco: Never Passive Smoke Exposure: Never Smokeless Tobacco: Never Comments:: Alcohol Use Standard Drinks/Week Comments Yes 0 (1 standard drink = 0.6 oz pur e alcohol) [facility] Utilities Answer Date Recorded In the past 12 months has untapt electric, gas, oil, or water [employer] threatened to shut off services in your [...] on filedocumented in this encounter Care Teams Surveyor Chain Helper Relationship Specialty Start Date End Date Deangelo Zabala MD [address] [place] [phone] PCP - General Family Medicine 03/12/20 documented as of this encounter
--- NOTE | 2024-12-14 11:12 | P.OP_ITS ---
Operative Note Operative Note Date of Service: 12/14/24 Narrative: Preoperative Diagnosis: L3-4 and L4-5 spinal stenosis/lateral recess stenosis/neural foraminal stenosis Operation: Removal synovial cyst left L3-4; Bilateral L3-4, L4-5 Laminotomy, Partial facetectomy and foraminotomy with use of microscope Consent Informed Consent was obtained for this operation. I have explained the nature, purpose and benefits of the operation. I have discussed the risks and benefit of the operation including possible complications or adverse events with patient/family. Alternative(s) were discussed with the patient with their relative benefits and risks as well as the consequences of not accepting the operation were included in obtaining consent. Surgeon: DAMIEN REAL MD, PHD Procedure Assisted By: Reddy Robertson Description of Procedure This patient is suffering from neurogenic claudication MRI shows severe spinal stenosis L3-4 and L4-5 with a grade 1 L4-5 spondylolisthesis. The patient was offered an interlaminar lumbar decompression left-sided approach. The procedure complications were explained. The patient was consented. The patient was brought to the operating room and endotracheally intubated. The patient was turned in prone position on the Hugo frame. Prep and drape was done followed by timeout. The Physician cardiology physician assistant provided access. A mid lumbar incision was made followed by release of the paravertebral muscle on the left side to expose the L3-4 and L4-5 lamina and facet joints. An intraoperative x-ray was obtained to confirm the correct level. The microscope was brought in. I took over the procedure. The high-speed drill was used to do a L3-4 laminotomy until flavum ligament was reached. A #2 Kerrison was used to expand the laminotomy near flush to the pedicles and to include a partial facetectomy. The flavum ligament was opened and resected with a #3 Kerrison to decompress the underlying thecal sac. The laminotomy was complicated by the presence of a synovial cyst that was attached to the left L4 nerve root and had to be dissected and removed before we could continue with our decompression. The cyst was carefully removed from the nerve root and then removed with a curved curette and pituitary. The flavum ligament was further removed to decompress the lateral recess and the exiting L4 nerve root. The patient was turned contralaterally. The spinous processes under cut after which the contralateral side was decompressed. A long nerve hook could be easily passed along the medial side of the pedicles as a sign of adequate decompression. Then attention was turned to the L4-5 interspace. A left L4-5 hemilaminotomy was done followed by partial facetectomy. Significant hypertrophied and severe lateral recess stenosis was encountered on the left side. The flavum ligament was resected to decompress the exiting L5 nerve root. The patient was then turned contralaterally in his spinous process was undercut to decompress the contralateral side. The microscope was removed. Hemostasis was done. The physician cardiology physician assistant close the Incision in 2 layers. Steri-Strips were used to approximate incision. An OpSite with Tegaderm was used to cover the incision. All sponge needle counts were correct. Patient was extubated and transported in stable is to recovery room. Anesthesia: General Estimated Blood Loss (ml): 40 mL Complications: None Duration of Surgery: 2 hours Postoperative Plan: Discharge to home
== END 2024-12-14 13:20 | disposition home or self-care (01) ==
PROVIDERS: PCP Family Medicine; Visit Provider Neurological Surgery
PROC: (CPT 63267; principal; 2024-12-14 09:00)
DX: M48.062 Spinal stenosis, lumbar region with neurogenic claudication (principal); M71.38 Other bursal cyst, other site; M54.50 Low back pain, unspecified; M79.652 Pain in left thigh; M79.651 Pain in right thigh; R26.2 Difficulty in walking, not elsewhere classified; R20.0 Anesthesia of skin; R20.2 Paresthesia of skin; Z96.653 Presence of artificial knee joint, bilateral; I10 Essential (primary) hypertension; E78.5 Hyperlipidemia, unspecified; Z79.899 Other long term (current) drug therapy
CPT/HCPCS: 63267; 63047; 63048; 93005; J0131; J0690; J1100; J1885; J2003; J2250; J2405; J2704; J3010

== ENCOUNTER → 2024-12-14 07:01 | Outpatient (BNV) | payer MEDICARE, SELFPAY | PROVIDERS: PCP Family Medicine; Visit Provider Neurological Surgery | DX: M48.062 Spinal stenosis, lumbar region with neurogenic claudication (principal) | CPT/HCPCS: 63267; 69990; 99499 ==

== ENCOUNTER 2025-01-04 09:54 | Outpatient (AMB) | payer MEDICARE, SELFPAY ==
--- NOTE | 2025-01-04 10:25 | HO.SPINEOV ---
Intake Visit Reasons: 1st post op Intake Note: Mr. Meyers is here today for his 1st post op. Machine Setter Required: No Allergies No Known Allergies Allergy (Verified 01/04/25 10:28) Assessment & Plan Assessment & Plan (1) Status post lumbar spine surgery for decompression of spinal cord: Code(s): Z98.890 - Other specified postprocedural states Category: Surgical Plan Operation: Removal synovial cyst left L3-4; Bilateral L3-4, L4-5 Laminotomy Yoshi is a pleasant 64 year old male who underwent L3-4 laminotomy with removal of synovial cyst on 12/14/24. To recap he was initially evaluated in clinic for mild low back pain accompanied by moderate-severe leg pain with ambulation. Today, he reports complete resolution of his pain. He did have a difficult 1st 2 weeks postoperatively, but is overall doing very well. 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 We discussed the postoperative healing course and I answered any questions that he had. The patient has no new neurological deficits. He ambulates well and rises from a seated position without difficulty. His posterior incision site is closed and well healed. There is no need for continued routine follow up with Yoshi. He may follow-up on an as-needed basis. Jl Ford MD,PhD [facility] Coding Level of Care Code Global (38422) Diagnoses Status post lumbar spine surgery for decompression of spinal cord Z98.890
--- OUTSIDE RECORDS SUMMARY | 2025-01-04 10:46 | XMS_ITS | Referral Summary ---
Author Organization [facility] Address [address] [place] [address] Care Team Providers Care Commercial Interior Designer Name Role Phone Deangelo Zabala MD Primary Care Provider Encounters Date Type Department Care Team Description 01/02/2025 1:30 PM EST Office Visit [address] [phone] Deangelo Zabala MD Spinal stenosis of lumbar region with neurogenic claudication (Primary Dx); Hypertension; Hyperlipidemia, unspecified hyperlipidemia type; Metabolic dysfunction-associated steatotic liver disease (MASLD); Class 2 obesity due to excess calories without serious comorbidity with body mass index (BMI) of 35.0 to 35.9 in adult 12/31/[address] [phone] Deangelo Zabala MD 12/05/[address] [phone] Deangelo Zabala MD 11/30/2024 myChart Message [address] [phone] Deangelo Zabala MD Labs 10/31/2024 myChart Message [address] [phone] Deangelo Zabala MD labs 10/31/2024 Orders Only [facility] [address] [place] [phone] Deangelo Zabala MD Elevated LFTs (Primary Dx); Elevation of levels of liver transaminase levels 10/30/2024 Telephone [facility] [address] [place] [phone] [place] 10/28/2024 Refill [facility] [address] [place] [phone] Deangelo Zabala MD Hyperlipidemia, unspecified hyperlipidemia type; Hypertension, unspecified type 10/28/[address] [phone] Deangelo Zabala MD 10/20/2024 myChart Message [facility] [address] [place] [phone] Deangelo Zabala MD called again 10/19/2024 3:53 PM EST - 10/19/2024 11:59 PM EST Hospital Encounter [facility] XRay [address] [place] [address] Reddy Hinojosa MD Low back pain, unspecified back pain laterality, unspecified chronicity, unspecified whether sciatica present Discharge Disposition: Home or Self Care () 10/19/2024 Orders Only [address] [phone] Deangelo Zabala MD 10/19/2024 3:00 PM EST Office Visit [facility] [address] [place] [address] Reddy Hinojosa MD Spinal stenosis of lumbar region with neurogenic claudication (Primary Dx) 10/11/2024 Orders Only [facility] [address] [place] [address] Deangelo Zabala MD Elevated LFTs (Primary Dx); Elevation of levels of liver transaminase levels from Last 3 Months Allergies Active Allergy Reactions Criticality Noted Date Comments Atorvastatin Hepatitis High 05/14/2005 ABN LIVER FUNCTION STUDY Medications aspirin 81 mg EC tablet Take 1 tablet (81 mg total) by mouth every 12 hours. Take with food. For 4 weeks 019 Active multivitamin (THERAGRAN) tablet Take 1 tablet by mouth daily. 019 Active cholecalciferol (VITAMIN D3) 1,000 unit tablet Take 1,000 Units by mouth daily. Active amoxicillin (AMOXIL) 500 mg capsule Take 2,000 mg by mouth once. Prior to dental procedures due to knee replacement 022 Active naltrexone (REVIA) 50 mg tablet Take 1 tablet (50 mg total) by mouth once a day. 90 tablet 3 024 2024 Active atorvastatin (LIPITOR) 10 mg tablet TAKE 1 TABLET BY MOUTH ONCE A DAY 90 tablet 3 024 Active fenofibrate (LOFIBRA) tablet 160 mgIndications:Hyp erlipidemia, unspecified hyperlipidemia type TAKE 1 TABLET BY MOUTH EVERY DAY 90 tablet 3 024 Active spironolacton-hyd rochlorothiaz (ALDACTAZIDE) 25-25 mg per tablet TAKE 1 TABLET BY MOUTH EVERY DAY 90 tablet 1 024 Active lisinopriL (PRINIVIL,ZESTRIL ) 40 mg tabletIndications :Hypertension, unspecified type TAKE 1 TABLET BY MOUTH ONCE A DAY 90 tablet 3 024 Active buPROPion XL (WELLBUTRIN XL) 150 mg tablet TAKE 1 TABLET BY MOUTH EVERY DAY IN THE MORNING 90 tablet 1 025 Active buPROPion XL (WELLBUTRIN XL) 150 mg tablet TAKE 1 TABLET BY MOUTH EVERY DAY IN THE MORNING 90 tablet 1 024 2024 Discontinued Active Problems Problem Noted Date Diagnosed Date Metabolic dysfunction-associ ated steatotic liver disease (MASLD) 01/02/2025 Assessment & Plan (01/02/2025 2:02 PM EST): Will check US; FIB 4 is `1.03. Continue current meds Spinal stenosis of lumbar re gion with neurogenic claudication 10/03/2024 Assessment & Plan (01/02/2025 4:51 PM EST): Has healed well. Follow up PRN Assessment & Plan (10/03/2024 12:17 PM EST): Agree with surgery; PT ed re Dx. postsurgical experiences discussed. Hammertoe of right foot 09/14/2023 Assessment & Plan (09/14/2023 9:03 AM EDT): Refer to podiatry as this impedes his walking; his form of exercise. Acute reaction to situational stress 02/02/2023 Assessment & Plan (09/14/2023 9:03 AM EDT): Rec he stop smoking and move to [facility] Assessment & Plan (06/08/2023 9:41 AM [...] going to the group sessions at the [facility] Low serum parathyroid hormone (PTH) 03/03/2021 [...] (05/30/2019): Added automatically from request for surgery [id number] Assessment & Plan (02/15/2024 9:48 AM EDT): [...] (03/15/2018): Added automatically from request for surgery [id number] Assessment & Plan (10/03/2024 12:16 PM EST): [...] 35.9 in adult 05/12/2012 Assessment & Plan (01/02/2025 4:49 PM EST): Pt encouraged to try change his snacking. His exercise seems good. Assessment & Plan (10/03/2024 12:16 PM EST): [...] Rosacea 08/13/2008 Hyperlipidemia 08/13/2008 Assessment & Plan (01/02/2025 4:50 PM EST): Would like to have him off his gemfibrizol. Will check labs and if US is good, would stop and continue atorvastatin. Assessment & Plan (02/15/2024 9:49 AM EDT): [...] the latter. Hypertension 08/13/2008 Assessment & Plan (01/02/2025 4:51 PM EST): Continue Aldactzaide and Lisinopril. CHeck lytes Assessment & Plan (10/03/2024 12:17 PM EST): [...] AM EST): Continue lisinopril 50 plus dyazide. Lytes BUN Creat good. Check home BP Assessment [...] PM EST): Continue lisinopril 40 plus dyazide; alvin WNL Assessment & Plan (06/03/2021 9:24 AM [...] knee 03/11/2010 10/03/2019 Gait instability 10/03/2019 Immunizations Immunization Administration Dates Next Due Covid-19, Pfizer, mRNA, [place] valent, PF 30 mcg/0.3 mL dose (for ages 12 and older) 02/18/2021,01/28/2021 Diphtheria and Tetanus Toxoi ds, Adsorbed for Pediatric Use 04/15/2001 INFLUENZA, SPLIT VIRUS, TRIVALENT, PF ,09/06/2012,09/01/2006,2004,11/21/2004 Influenza Virus Vaccine, Dee e, Attenuated, for Intranasal Use 09/12/2013 Influenza, Injectable, Quadr ivalent, Contains Preservative 10/03/2019,09/29/2018 Influenza, Injectable, Quadr ivalent, Preservative Free 09/24/2020,09/01/2019(Deferred: See Provider Order),06/28/2017 Influenza, Trivalent, MDV, Injectable 09/07/2016 Pneumococcal conjugate PCV20,polysaccharide RWF005 conjugate, adjuvant, PF (Prevnar 20) 09/14/2023 Tetanus Toxoid, Reduced Diph theria Toxoid, and Acellular Pertussis Vaccine, Adsorbed 09/14/2023,05/12/2012 Zoster Vaccine Recombinant 10/08/2021,06/05/2021 Social History Tobacco Use Types Packs/Day Years Used Date Smoking Tobacco: Never Passive Smoke Exposure: Never Smokeless Tobacco: Never Tobacco Cessation:Counseling Given: Not Answered Comments:: Alcohol Use Standard Drinks/Week Comments Yes 0 (1 standard drink = 0.6 oz pur e alcohol) [facility] Utilities Answer Date Recorded In the past 12 months has th e [employer], gas, oil, or water [employer] threatened to shut off services in your home? No 12/26/2024 Hunger Vital Sign Answer Date Recorded Within the past 12 months, y ou worried that your food would run out before you got the money to buy more. Never true 12/26/19 25 Within the past 12 months, t he food you bought just didn't last and you didn't have money to get more. Never true 12/26/2024 Transportation Answer Date Recorded In the past 12 months, has l ack of reliable transportation kept you from medical appointments, meetings, work or from getting things needed for daily living? No 12/26/2024 Housing Answer Date Recorded Housing Risk Low 2 12/26/2024 Housing Risk Medium Not on file 12/26/2024 Housing Risk High Not on file 12/26/2024 What is your living situation today? LSSTEADY 12/26/2024 Sex and Gender Information Value Date Recorded [...] Sign Reading Time Taken Comments Blood Pressure 150/99 01/02/2025 1:26 PM EST Pulse 80 01/02/2025 1:26 PM EST Temperature 36.8 ??C (98.2 ??F) 10/21/2022 10:[address] Respiratory Rate 18 09/01/2019 7:48 AM EDT Oxygen Saturation 97% 01/02/2025 1:26 PM EST Inhaled Oxygen Concentration - - Weight 93.9 kg (207 lb) 01/02/2025 1:26 PM EST Height 175.3 cm (5' 9 ) 10/03/2024 10:30 AM EST Body Mass Index 30.57 10/03/2024 10:30 AM EST Plan of Treatment Upcoming Encounters Date Type Department Care Team (Late st Contact Info) Description 01/16/2025 7:15 AM EST Appointment [facility] Ultrasound [address] [place] [address] Medical Devices Implanted Type Area Data Warehousing Engineer Device Identifier Shelf Expiration Date Model / Serial / Lot Cement Tobramycin Impreganated Simplex P - [id number] Implanted:Qty: 2 on 03/13/2019 by Gerry Clemons MD at [facility] Implant VICKY 07/15/2020 6197-9-001 / / [id number] Plug Stem Posterior Stabilized Tapered Tivanium Nexgen - [id number] Implanted:Qty: 1 on 03/13/2019 by Gerry Clemons MD at [facility] Implant Right: Knee Jossie 03/14/2029 5960-99 / / [id number] Component Patella Polyethylene 38mm Nexgen - [id number] Implanted:Qty: 1 on 03/13/2019 by Gerry Clemons MD at [facility] Implant Right: Knee Jossie 10/14/2026 / / [id number] Implant Femoral Cruciate Flex Option Right Size F Minus Nonsterile Latex Free Nexgen - [id number] Implanted:Qty: 1 on 03/13/2019 by Gerry Clemons MD at [facility] Implant Right: Knee Jossie 09/14/2027 / / [id number] Surface Articular Green Size 5-6 10mm Nexgen - [id number] Implanted:Qty: 1 on 03/13/2019 by Gerry Clemons MD at [facility] Implant Right: Knee Jossie 01/12/2027 90-5970-40 -10 / / [id number] Cement Tobramycin Impreganated Simplex P - [id number] Implanted:Qty: 2 on 08/30/2019 by Gerry Clemons MD at [facility] Implant Left: Knee VICKY 11/14/2020 [id number] / / [id number] Plug Stem Posterior Stabilized Tapered Tivanium Nexgen - [id number] Implanted:Qty: 1 on 08/30/2019 by Gerry Clemons MD at [facility] Implant Left: Knee Jossie 01/12/2029 5960-99 / / [id number] Component Patella Polyethylene 38mm Nexgen - [id number] Implanted:Qty: 1 on 08/30/2019 by Gerry Clemons MD at [facility] Implant Left: Knee Jossie 01/12/2027 / / [id number] Surface Articular Green Size 5-6 10mm Nexgen - [id number] Implanted:Qty: 1 on 08/30/2019 by Gerry Clemons MD at [facility] Implant Left: Knee Jossie 08/14/2027 90-5970-40 -10 / / [id number] Baseplate Tibial Stemmed Tivanium/Pmma Precoat Size 5 Nexgen - [id number] Implanted:Qty: 1 on 03/13/2019 by Gerry Clemons MD at [facility] Plate Right: Knee Jossie 09/14/2028 / / [id number] Baseplate Tibial Stemmed Tivanium/Pmma Precoat Size 5 Nexgen - [id number] Implanted:Qty: 1 on 08/30/2019 by Gerry Clemons MD at [facility] Plate Left: Knee Jossie 01/12/2029 / / [id number] Cr-Flex Femoral Component Size F- Left Implanted:Qty: 1 on 08/30/2019 by Gerry Clemons MD at [facility] Left: Knee Jossie 08/14/2028 / / [id number] Procedures * Due to [place] [employer] law, this organization might not be sharing negative HIV tests. Procedure Name Priority Date/Time Associated Diagnosis Comments PROCEDURE - SCANNED 12/14/2024 PROCEDURE - SCANNED 12/14/2024 HEPATITIS PANEL, ACUTE Routine 11/29/2024 11:10 AM [...] Health Maintenance Results * Due to [place] [employer] law, this organization might not be sharing negative HIV tests. * PROCEDURE - SCANNED (12/14/2024) us Onbase Scan Arnold SCANNED PROCEDURES Final Resu lt * PROCEDURE - SCANNED (12/14/2024) us Onbase Scan Arnold SCANNED PROCEDURES Final Resu lt * Hepatitis Panel, Acute (11/29/2024 11:10 AM EST) Only the most recent of2 resultswithin the time period is included. Hepatitis A IgM NON-REACT WILLIE NON-REACT WILLIE 11/29/2024 5:33 PM EST [facility] Hepatitis B Surface Antigen NON-REACT WILLIE NON-REACT WILLIE 11/29/2024 5:33 PM EST [facility] Hepatitis B Core Antibody NON-REACT WILLIE NON-REACT WILLIE 11/29/2024 5:33 PM EST [facility] Hepatitis C Antibody NON-REACT WILLIE NON-REACT WILLIE 11/29/2024 5:33 PM EST [facility] Comment: HCV antibody was non-reactive. There is no laboratory evidence of HCV infection. In most cases, no further action is required. However, if recent HCV exposure is suspected, a test for HCV RNA (test code 94596) is suggested. For additional information please refer to http://[employer].Teedot/faq/QIZ42s6 (This link is being provided for informational/ educational purposes only.) For additional information, please refer to http://Rudder/faq/FCZ760 (This link is being provided for informational/ educational purposes only.) For additional information, please refer to http://[employer].Teedot/faq/WQA054 (This link is being provided for informational/ educational purposes only.) For additional information, please refer to http://Rudder/faq/TGH887 (This link is being provided for informational/ educational purposes only.) Blood Structure of peripheral vein / Unknown 11/29/2024 11:10 AM EST 11/29/2024 3:44 PM EST Narrative [facility] - 11/29/2024 5:39 PM EST FASTING:NO us Deangelo Zabala MD LAB BLOOD ORDERABLES Final Res ult [facility] [address], [place] [address], [facility] [address] [place] [address] * Comprehensive metabolic panel (11/29/2024 11:10 AM EST) Only the most recent of2 resultswithin the time period is included. Glucose 95 65 - 139 mg/dL 11/29/2024 5:37 PM [facility] Comment: ? Non-fasting reference interval BUN 20 7 - 25 mg/dL 11/29/2024 5:37 PM [facility] Creatinine 0.78 0.70 - 1.35 mg/dL 11/29/2024 5:37 PM [facility] eGFR 98 > OR = 60 mL/min/1. 73m2 11/29/2024 5:37 PM [facility] Bun/Creatinine Ratio SEE NOTE: 6 (calc) 11/29/2024 5:37 PM [facility] Comment: ?? Not Reported: BUN and Creatinine are within ?? reference range. ? Sodium 136 135 - 146 mmol/L 11/29/2024 5:37 PM [facility] Potassium 4.3 3.5 - 5.3 mmol/L 11/29/2024 5:37 PM [facility] Chloride 100 98 - 110 mmol/L 11/29/2024 5:37 PM [facility] Carbon Dioxide 29 20 - 32 mmol/L 11/29/2024 5:37 PM [facility] Calcium 10.0 8.6 - 10.3 mg/dL 11/29/2024 5:37 PM [facility] Protein, Total 7.4 6.1 - 8.1 g/dL 11/29/2024 5:37 PM [facility] Albumin 4.8 3.6 - 5.1 g/dL 11/29/2024 5:37 PM [facility] Globulin 2.6 1.9 - 3.7 g/dL (calc) 11/29/2024 5:37 PM [facility] Albumin/Globuli n Ratio 1.8 1.0 - 2.5 (calc) 11/29/2024 5:37 PM [facility] Bilirubin, Total 0.4 0.2 - 1.2 mg/dL 11/29/2024 5:37 PM [facility] Alkaline Phosphatase 64 35 - 144 U/L 11/29/2024 5:37 PM [facility] AST 32 10 - 35 U/L 11/29/2024 5:37 PM EST [facility] ALT 39 9 - 46 U/L 11/29/2024 5:37 PM EST [facility] Blood Structure of peripheral vein / Unknown 11/29/2024 11:10 AM EST 11/29/2024 4:07 PM EST Narrative [facility] - 11/29/2024 5:39 PM EST FASTING:NO us Deangelo Zabala MD LAB BLOOD ORDERABLES Final Res ult [facility] [address], [place] [address], [place] [phone] [facility] [address] [place] [address] * XR Lumbar Spine 4+ Views Including [...] obtain the completed interpretation. ? Workstation ID: [id number] Narrative 10/21/2024 11:36 AM EST COMPARISON: MRI from 09/10/2024. ?? Resulting Agency Comment [id number] Procedure Note Alexander Jimenez MD - 10/21/2024 [...] possible to obtain thecompleted interpretation. Workstation ID: [id number] us Reddy Hinojosa MD IMG XR PROCEDURES Final Res ult * (ABNORMAL) CBC (10/10/2024 9:42 AM EST) Pathologist [facility] White Blood Cell Count 12.3(H) 3.8 - 10.8 Thousand/ uL 10/10/2024 8:45 PM EST [facility] Red Blood Cell Count 5.38 4.20 - 5.80 Million/u L 10/10/2024 8:45 PM EST [facility] Hemoglobin 16.3 13.2 - 17.1 g/dL 10/10/2024 8:45 PM EST [facility] Hematocrit 48.8 38.5 - 50.0 % 10/10/2024 8:45 PM EST [facility] MCV 90.7 80.0 - 100.0 fL 10/10/2024 8:45 PM EST [facility] MCH 30.3 27.0 - 33.0 pg 10/10/2024 8:45 PM EST [facility] MCHC 33.4 32.0 - 36.0 g/dL 10/10/2024 8:45 PM EST [facility] Comment: For adults, a slight decrease in the calculated MCHC value (in the range of 30 to 32 g/dL) is most likely not clinically significant; however, it should be interpreted with caution in correlation with other red cell parameters and the patient's clinical condition. RDW 12.1 11.0 - 15.0 % 10/10/2024 8:45 PM EST [facility] Platelet Count 327 140 - 400 Thousand/ uL 10/10/2024 8:45 PM EST [facility] MPV 9.9 7.5 - 12.5 fL 10/10/2024 8:45 PM EST [facility] Blood Structure of peripheral vein / Unknown 10/10/2024 9:42 AM EST 10/10/2024 4:08 PM EST Narrative [facility] - 10/11/2024 3:59 PM EST FASTING:YES us Deangelo Zabala MD LAB BLOOD ORDERABLES Final Res ult [facility] [address], [place] [address], [facility] [address] [place] [address] * (ABNORMAL) Lipid panel (10/10/2024 9:42 AM EST) Cholesterol, Total 175 <200 mg/dL 10/10/2024 7:38 PM EST [facility] HDL Cholesterol 48 > OR = 40 mg/dL 10/10/2024 7:38 PM EST [facility] Triglycerides 103 <150 mg/dL 10/10/2024 7:38 PM EST [facility] LDL-Cholesterol 107(H) mg/dL (calc) 10/10/2024 7:38 PM [facility] Comment: Reference range: <100 Desirable range <100 mg/dL for primary prevention; ?? <70 mg/dL for patients with CHD or diabetic patients with > or = 2 CHD risk factors. LDL-C is now calculated using the Kinga calculation, which is a validated novel method providing better accuracy than the Friedewald equation in the estimation of LDL-C. Ricardo MAURICIO et al. DARY. 2013;310(19): 0844-8017 (http://education.Autocosta.Nudipay Mobile Payment/faq/PPC809) Chol/HDLC Ratio 3.6 <5.0 (calc) 10/10/2024 7:38 PM EST [facility] Non HDL Cholesterol 127 <130 mg/dL (calc) 10/10/2024 7:38 PM EST [facility] Comment: For patients with diabetes plus 1 [...] ORDERABLES Final Res ult [facility] [address], [place] [address], [place] [phone] [facility] [address] [place] [address] * COLONOSCOPY (04/29/2018) Narrative Procedure Note Vasquez Rodriguez MD - 04/29/2018 12:56 PM EDT Gastroenterology Patient Name: Ysohi Meyers Procedure Date: 04/29/2018 12:56 PM Date of : 1960 Admit Type: Outpatient Age: 57 Room: [place] [address] Gender: Male Note Status: Finalized Attending MD: [...] Recently Relevant to Health Maintenance Insurance MEDICARE BC MCR SUPP Advance Directives Documents on File Type Date Recorded Patient Silver Designer Expl [facility] Care Proxy 10/03/2024 12:58 PM Advance Directive [...] 7:07 AM 03/13/2019 2:32 PM Care Teams Commercial Interior Designer Relationship Specialty Start Date End Date Deangelo Zabala MD [address] [place] [phone] PCP - General Family Medicine 03/12/20
--- OUTSIDE RECORDS SUMMARY | 2025-01-04 10:46 | XMS_ITS | Encounter Summary ---
Author Organization [facility] Address [address] [place] [address] Care Team Providers Care Rod Piler Name Role Phone Deangelo Zabala MD Primary Care Provider Reason for Visit * Reason Comments Med Refill Encounter Details Date Type Department Care Team (Late st Contact Info) Description 12/31/2024 Refill [facility] [address] [place] [address] Deangelo Zabala MD [address] [place] [phone] Social History Tobacco Use Types Packs/Day Years Used Date Smoking Tobacco: Never Passive Smoke Exposure: Never Smokeless Tobacco: Never Comments:: Alcohol Use Standard Drinks/Week Comments Yes 0 (1 standard drink = 0.6 oz pur e alcohol) [facility] Utilities Answer Date Recorded In the past 12 months has e [employer], gas, oil, or water [employer] threatened to shut off services in your [...] as of this encounter Plan of Treatment Upcoming Encounters Date Type Department Care Team (Late st Contact Info) Description 01/16/2025 7:15 AM EST Appointment [facility] Ultrasound [address] [place] [address] documented as of this encounter Visit Diagnoses Not on filedocumented in this encounter Care Teams Rod Piler Relationship Specialty Start Date End Date Deangelo Zabala MD [address] [place] [address] PCP - General Family Medicine 03/12/20 documented as of this encounter
--- OUTSIDE RECORDS SUMMARY | 2025-01-04 10:46 | XMS_ITS | Clinical Summary ---
Author Organization [facility] Address [address] [place] [address] Care Team Providers Care Type Inspector Name Role Phone Deangelo Zabala MD Primary Care Provider [phone] Allergies Active Allergy Reactions Criticality Noted Date [...] MOUTH ONCE A DAY 90 tablet 3 Active fenofibrate (LOFIBRA) tablet 160 mgIndications:Hyp erlipidemia, [...] Rec he stop smoking and move to [facility] Assessment & Plan (06/08/2023 9:41 AM EDT): [...] going to the group sessions at the [facility] Low serum parathyroid hormone (PTH) 03/03/2021 [...] (05/30/2019): Added automatically from request for surgery [id number] Assessment & Plan (02/15/2024 9:48 AM EDT): [...] (03/15/2018): Added automatically from request for surgery [id number] Assessment & Plan (10/03/2024 12:16 PM EST): [...] EST): Continue lisinopril 50 plus dyazide. Timi Hydeat good. Check home BP Assessment & Plan [...] Description 01/02/2025 1:30 PM EST Office Visit [address] [phone] Deangelo Zabala MD Spinal stenosis of lumbar region with neurogenic claudication (Primary Dx); Hypertension; Hyperlipidemia, unspecified hyperlipidemia type; Metabolic dysfunction-associated steatotic liver disease (MASLD); Class 2 obesity due to excess calories without serious comorbidity with body mass index (BMI) of 35.0 to 35.9 in adult 12/31/[address] [phone] Deangelo Zabala MD 12/05/[address] [address] Deangelo Zabala MD 11/30/2024 myChart Message [address] [phone] Deangelo Zabala MD Labs 10/31/2024 myChart Message [address] [phone] Deangelo Zabala MD labs 10/31/2024 Orders Only [address] [address] Deangelo Zabala MD Elevated LFTs (Primary Dx); Elevation of levels of liver transaminase levels 10/30/[address] [phone] Vicki Mcnamara [place] 10/28/2024 Refill [facility] [address] [place] [address] Deangelo Zabala MD Hyperlipidemia, unspecified hyperlipidemia type; Hypertension, unspecified type 10/28/2024 Refill [facility] [address] [place] [phone] Deangelo Zabala MD 10/20/2024 myChart Message [facility] [address] [place] [phone] Deangelo Zabala MD called again 10/19/2024 3:53 PM EST - 10/19/2024 11:59 PM EST Hospital Encounter [facility]Ray [address] [place] [address] Reddy Hinojosa MD Low back pain, unspecified back pain laterality, unspecified chronicity, unspecified whether sciatica present Discharge Disposition: Home or Self Care () 10/19/2024 3:00 PM EST Office Visit [facility] [address] [place] [address] Reddy Hinojosa MD Spinal stenosis of lumbar region with neurogenic claudication (Primary Dx) 10/19/2024 Orders Only [address] [phone] Deangelo Zabala MD 10/11/2024 Orders Only [address] [phone] Deangelo Zabala MD Elevated LFTs (Primary Dx); Elevation of levels of liver transaminase levels from Last 3 Months Immunizations Immunization Administration Dates Next Due Covid-19, Pfizer, mRNA, Glasscock valent, PF 30 mcg/0.3 mL dose (for ages 12 and older) 02/18/2021,01/28/2021 Diphtheria and Tetanus Toxoi ds, Adsorbed for Pediatric Use 04/15/2001 INFLUENZA, SPLIT VIRUS, TRIVALENT, PF ,09/06/2012,09/01/2006,2004,11/21/2004 Influenza Virus Vaccine, Dee e, Attenuated, for Intranasal Use 09/12/2013 Influenza, Injectable, Quadr ivalent, Contains Preservative 10/03/2019,09/29/2018 Influenza, Injectable, Quadr ivalent, Preservative Free 09/24/2020,09/01/2019(Deferred: See Provider Order),06/28/2017 Influenza, Trivalent, MDV, Injectable 09/07/2016 Pneumococcal conjugate PCV20,polysaccharide [id number] conjugate, adjuvant, PF (Prevnar 20) 09/14/2023 Tetanus [...] drink = 0.6 oz pur e alcohol) [facility] Utilities Answer Date Recorded In the past 12 months has e [employer], [employer], [employer], or water [employer] threatened to shut off services in your [...] Info) Description 01/16/2025 7:15 AM EST Appointment [facility] Ultrasound [address], [place] [id number] Health Maintenance Due Date Last Done Comments Health Care Proxy Review 11/15/2024 COVID-19 Vaccine ( season) 2025 08/05/2024, 08/31/2023, 10/04/2022, Additional history exists Basic Metabolic Panel 11/29/2025 11/29/2024 , 10/10/2024, 09/15/2023, Additional history exists Depression Screening and Follow-Up 12/26/2025 12/26/2024, 12/26/2024 Fall Risk Screening 12/26/2025 12/26/2024 Social Drivers of Health Annual Screening 12/26/2025 12/26/2024 Colonoscopy 04/29/2028 04/29/2018, 04/29/2018 RSV Vaccine (60+ years old and patients) (1 - 1-dose 75+ series) 2033 DTaP,Tdap,and Td Vaccines (4 - Td or Tdap) 09/14/2033 09/14/2023, 05/12/2012, 04/15/2001 Tobacco Screening 11/15/2042 01/02/2025 Zoster Vaccines Completed 10/08/2021, 06/05/2021 Pneumococcal Vaccine: 50+ Years Completed 09/14/2023 Influenza Vaccine Discontinued 08/05/2024, , 10/04/2022, Additional history exists Hepatitis C Screening Discontinued 11/29/2024, 024 Alcohol/Substance Use Screening Completed 12/26/2024 Hepatitis B Vaccines Aged Out No long er eligible based on patient's age to complete this topic Medical Devices Implanted Type Area Director Of Vocational Guidance Device Identifier Shelf Expiration Date Model / Serial / Lot Cement Tobramycin Impreganated Simplex P - [id number] Implanted:Qty: 2 on 03/13/2019 by Gerry Clemons MD at [facility] Implant VICKY 07/15/2020 6197-9-001 / / [id number] Plug Stem Posterior Stabilized Tapered Tivanium Nexgen - [id number] Implanted:Qty: 1 on 03/13/2019 by Gerry Clemons MD at [facility] Implant Right: Knee Jossie 03/14/2029 5960-99 / / [id number] Component Patella Polyethylene 38mm Nexgen - [id number] Implanted:Qty: 1 on 03/13/2019 by Gerry Clemons MD at [facility] Implant Right: Knee Jossie 10/14/2026 / / [id number] Implant Femoral Cruciate Flex Option Right Size F Minus Nonsterile Latex Free Nexgen - [id number] Implanted:Qty: 1 on 03/13/2019 by Gerry Clemons MD at [facility] Implant Right: Knee Jossie 09/14/2027 / / [id number] Surface Articular Green Size 5-6 10mm Nexgen - [id number] Implanted:Qty: 1 on 03/13/2019 by Gerry Clemons MD at [facility] Implant Right: Knee Jossie 01/12/2027 90-5970-40 -10 / / [id number] Cement Tobramycin Impreganated Simplex P - [id number] Implanted:Qty: 2 on 08/30/2019 by Gerry Clemons MD at [facility] Implant Left: Knee VICKY 11/14/2020 6197-9-001 / / [id number] Plug Stem Posterior Stabilized Tapered Tivanium Nexgen - [id number] Implanted:Qty: 1 on 08/30/2019 by Gerry Clemons MD at [facility] Implant Left: Knee Jossie 01/12/2029 5960-99 / / [id number] Component Patella Polyethylene 38mm Nexgen - [id number] Implanted:Qty: 1 on 08/30/2019 by Gerry Clemons MD at [facility] Implant Left: Knee Jossie 01/12/2027 / / [id number] Surface Articular Green Size 5-6 10mm Nexgen - [id number] Implanted:Qty: 1 on 08/30/2019 by Gerry Clemons MD at [facility] Implant Left: Knee Jossie 08/14/2027 90-5970-40 -10 / / [id number] Baseplate Tibial Stemmed Tivanium/Pmma Precoat Size 5 Nexgen - [id number] Implanted:Qty: 1 on 03/13/2019 by Gerry Clemons MD at [facility] Plate Right: Knee Jossie 09/14/2028 / / [id number] Baseplate Tibial Stemmed Tivanium/Pmma Precoat Size 5 Nexgen - [id number] Implanted:Qty: 1 on 08/30/2019 by Gerry Clemons MD at [facility] Plate Left: Knee Jossie 01/12/2029 / / [id number] Cr-Flex Femoral Component Size F- Left Implanted:Qty: 1 on 08/30/2019 by Gerry Clemons MD at [facility] Left: Knee Jossie 08/14/2028 / / [id number] Procedures * Due to [place] state law, this organization might not be sharing [...] to Health Maintenance Results * Due to [place] state law, this organization might not be sharing [...] WILLIE NON-REACT WILLIE 11/29/2024 5:33 PM EST [facility] Hepatitis B Surface Antigen NON-REACT WILLIE NON-REACT WILLIE 11/29/2024 5:33 PM EST [email or web address] Hepatitis B Core Antibody NON-REACT WILLIE NON-REACT WILLIE 11/29/2024 5:33 PM EST [facility] Hepatitis C Antibody NON-REACT WILLIE NON-REACT WILLIE 11/29/2024 5:33 PM EST [facility] Comment: HCV antibody was non-reactive. There is no laboratory evidence of HCV infection. In most cases, no further action is required. However, if recent HCV exposure is suspected, a test for HCV RNA (test code 93692) is suggested. For additional information please refer to http://[employer].Beneq/faq/LAS17q1 (This link is being provided for informational/ educational purposes only.) For additional information, please refer to http://[employer].Beneq/faq/YKB521 (This link is being provided for informational/ educational purposes only.) For additional information, please refer to http://[employer].Beneq/faq/CKH850 (This link is being provided for informational/ educational purposes only.) For additional information, please refer to http://[employer].Beneq/faq/CDF546 (This link is being provided for informational/ educational purposes only.) Blood Structure of peripheral vein / Unknown 11/29/2024 11:10 AM EST 11/29/2024 3:44 PM EST Narrative [facility] - 11/29/2024 5:39 PM EST FASTING:NO us Deangelo Zabala MD LAB BLOOD ORDERABLES Final Res ult [facility] [address] [facility] 3rd Floor, [place] [address], [employer] [facility] [address] [place] [address] * Comprehensive metabolic panel (11/29/2024 11:10 AM EST) Only the most recent of2 resultswithin the time period is included. [facility] Glucose 95 65 - 139 mg/dL 11/29/2024 5:37 PM EST [facility] Comment: ? Non-fasting reference interval BUN 20 7 - 25 mg/dL 11/29/2024 5:37 PM EST [facility] Creatinine 0.78 0.70 - 1.35 mg/dL 11/29/2024 5:37 PM EST [email or web address] eGFR 98 > OR = 60 mL/min/1. 73m2 11/29/2024 5:37 PM [facility] Bun/Creatinine Ratio SEE NOTE: 6 - 22 (calc) 11/29/2024 5:37 PM EST [email or web address] Comment: ?? Not Reported: BUN and Creatinine are within ?? reference range. ? Sodium 136 135 - 146 mmol/L 11/29/2024 5:37 PM EST [email or web address] Potassium 4.3 3.5 - 5.3 mmol/L 11/29/2024 5:37 PM [facility] Chloride 100 98 - 110 mmol/L 11/29/2024 5:37 PM [facility] Carbon Dioxide 29 20 - 32 mmol/L 11/29/2024 5:37 PM [facility] Calcium 10.0 8.6 - 10.3 mg/dL 11/29/2024 5:37 PM [facility] Protein, Total 7.4 6.1 - 8.1 g/dL 11/29/2024 5:37 PM [facility] Albumin 4.8 3.6 - 5.1 g/dL 11/29/2024 5:37 PM [facility] Globulin 2.6 1.9 - 3.7 g/dL (calc) 11/29/2024 5:37 PM [facility] Albumin/Globuli n Ratio 1.8 1.0 - 2.5 (calc) 11/29/2024 5:37 PM [facility] Bilirubin, Total 0.4 0.2 - 1.2 mg/dL 11/29/2024 5:37 PM [facility] Alkaline Phosphatase 64 35 - 144 U/L 11/29/2024 5:37 PM [facility] AST 32 10 - 35 U/L 11/29/2024 5:37 PM [facility] ALT 39 9 - 46 U/L 11/29/2024 5:37 PM [facility] Blood Structure of peripheral vein / Unknown 11/29/2024 11:10 AM EST 11/29/2024 4:07 PM EST Narrative [facility] - 11/29/2024 5:39 PM EST FASTING:NO us Deangelo Zabala MD LAB BLOOD ORDERABLES Final Res ult [facility] [address] [facility] [address], [place] [address], [place] [phone] [email or web address] [address] [place] [address] * XR Lumbar Spine 4+ Views Including [...] obtain the completed interpretation. ? Workstation ID: [id number] Narrative 10/21/2024 11:36 AM EST COMPARISON: MRI from 09/10/2024. ?? Resulting Agency Comment [id number] Procedure Note Alexander Jimenez MD - 10/21/2024 [...] possible to obtain thecompleted interpretation. Workstation ID: [id number] us Reddy Hinojosa MD IMG XR PROCEDURES Final Res ult * (ABNORMAL) CBC (10/10/2024 9:42 AM EST) White Blood Cell Count 12.3(H) 3.8 - 10.8 Thousand/ uL 10/10/2024 8:45 PM EST [facility] Red Blood Cell Count 5.38 4.20 - 5.80 Million/u L 10/10/2024 8:45 PM EST [facility] Hemoglobin 16.3 13.2 - 17.1 g/dL 10/10/2024 8:45 PM EST [facility] Hematocrit 48.8 38.5 - 50.0 % 10/10/2024 8:45 PM EST [facility] MCV 90.7 80.0 - 100.0 fL 10/10/2024 8:45 PM EST [facility] MCH 30.3 27.0 - 33.0 pg 10/10/2024 8:45 PM EST [facility] MCHC 33.4 32.0 - 36.0 g/dL 10/10/2024 8:45 PM EST [facility] Comment: For adults, a slight decrease in the calculated MCHC value (in the range of 30 to 32 g/dL) is most likely not clinically significant; however, it should be interpreted with caution in correlation with other red cell parameters and the patient's clinical condition. RDW 12.1 11.0 - 15.0 % 10/10/2024 8:45 PM EST [facility] Platelet Count 327 140 - 400 Thousand/ uL 10/10/2024 8:45 PM EST [facility] MPV 9.9 7.5 - 12.5 fL 10/10/2024 8:45 PM EST [facility] Blood Structure of peripheral vein / Unknown 10/10/2024 9:42 AM EST 10/10/2024 4:08 PM EST Narrative [facility] - 10/11/2024 3:59 PM EST FASTING:YES us Deangelo Zabala MD LAB BLOOD ORDERABLES Final Res ult [facility] [address] [facility] [address], [place] [address], [place] [phone] [facility] [address] [place] [address] * (ABNORMAL) Lipid panel (10/10/2024 9:42 AM EST) Cholesterol, Total 175 <200 mg/dL 10/10/2024 7:38 PM EST [facility] HDL Cholesterol 48 > OR = 40 mg/dL 10/10/2024 7:38 PM EST [facility] Triglycerides 103 <150 mg/dL 10/10/2024 7:38 PM EST [facility] LDL-Cholesterol 107(H) mg/dL (calc) 10/10/2024 7:38 PM [employer] Comment: Reference range: <100 Desirable range <100 mg/dL for primary prevention; ?? <70 mg/dL for patients with CHD or diabetic patients with > or = 2 CHD risk factors. LDL-C is now calculated using the Ricardo-Jignesh calculation, which is a validated novel method providing better accuracy than the Friedewald equation in the estimation of LDL-C. Ricardo MAURICIO et al. DARY. 2013;310(19): 9038-3063 (http://education.[employer]/faq/JJX857) Chol/HDLC Ratio 3.6 <5.0 (calc) 10/10/2024 7:38 PM EST [facility] Non HDL Cholesterol 127 <130 mg/dL (calc) 10/10/2024 7:38 PM [employer] Comment: For patients with diabetes plus 1 [...] ORDERABLES Final Res ult [facility] [address] [facility] 3[address], [place] [address], [place] [phone] [facility] [address] [place] [address] * COLONOSCOPY (04/29/2018) Narrative Procedure Note Vasquez Rodriguez MD - 04/29/2018 12:56 PM EDT Gastroenterology Patient Name: Yoshi Meyers Procedure Date: 04/29/2018 12:56 PM Date of : 1960 Admit Type: Outpatient Age: 57 Room: [facility] 01 Gender: Male Note Status: Finalized Attending MD: [...] Recently Relevant to Health Maintenance Insurance MEDICARE [facility] Advance Directives Documents on File Type Date Recorded Patient Can [facility] Health Care Proxy 10/03/2024 12:58 PM Advance [...] 7:07 AM 03/13/2019 2:32 PM Care Teams Type Inspector Relationship Specialty Start Date End Date Deangelo Zabala MD [address] [place] [id number] PCP - General Family Medicine 03/12/20
--- OUTSIDE RECORDS SUMMARY | 2025-01-04 10:46 | XMS_ITS | Encounter Summary ---
Author Organization [facility] Address [address] [place] [address] Care Team Providers Care Fern Gatherer Name Role Phone Deangelo Zabala MD Primary Care Provider [phone] Reason for Referral * Diagnostic Imaging (Routine) - Authorized Specialty Diagnoses / Procedures Referred By Yaquelin smith Referred To Contact Diagnoses Metabolic dysfunction-associated steatotic liver disease (MASLD) Procedures US Limited Abdomen Single Org Deangelo Zabala MD [address] [place] [address] Phone: tel: fax: Referral ID Status Reason Start Date Expiration Date V isits Requested Visits Authorized [id number] Authorized 01/02/2025 07/04/2026 1 1 Reason for Visit * Reason Comments Follow-up Encounter Details Date Type Department Care Team (Latest Contact Info) Description 01/02/2025 1:30 PM EST Office Visit [facility] [address] [place] [address] Deangelo Zabala MD [address] [place] [address] Spinal stenosis of lumbar region with neurogenic claudication (Primary Dx); Hypertension; Hyperlipidemia, unspecified hyperlipidemia type; Metabolic dysfunction-associated steatotic liver disease (MASLD); Class 2 obesity due to excess calories without serious comorbidity with body mass index (BMI) of 35.0 to 35.9 in adult Social History Tobacco Use Types Packs/Day Years Used Date Smoking Tobacco: Never Passive Smoke Exposure: Never Smokeless Tobacco: Never Tobacco Cessation:Counseling Given: Not Answered Comments:: Alcohol Use Standard Drinks/Week Comments Yes 0 (1 standard drink = 0.6 oz pur e alcohol) [facility] Utilities Answer Date Recorded In the [...] on file documented as of this encounter Last Filed Vital Signs Vital Sign Reading Time Taken Comments Blood Pressure 150/99 01/02/2025 1:26 PM EST Pulse 80 01/02/2025 1:26 PM EST Temperature - - Respiratory Rate - - Oxygen Saturation 97% 01/02/2025 1:26 PM EST Inhaled Oxygen Concentration - - Weight 93.9 kg (207 lb) 01/02/2025 1:26 PM EST Height - - Body Mass Index 30.57 10/03/2024 10:30 AM EST documented in this encounter Progress Notes * Deangelo Zabala MD - 01/02/2025 4:35 PM EST ASSESSMENT AND PLAN Metabolic dysfunction-associated steatotic liver disease (MASLD) Will check US; FIB 4 is `1.03. Continue current meds Class 2 obesity due to excess calories without serious comorbidity with body mass index (BMI) of 35.0 to 35.9 in adult Pt encouraged to try change his snacking. His exercise seems good. Hyperlipidemia Would like to have him off his gemfibrizol. Will check labs and if US is good, would stop and continue atorvastatin. Hypertension Continue Aldactzaide and Lisinopril. CHeck lytes Spinal stenosis of lumbar region with neurogenic claudication Has healed well. Follow up PRN No follow-ups on file. HISTORY OF PRESENT ILLNESS: 64 y.o. male who presents for: HPI: He comes in following back surgery. Doing very well. 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 PAST MEDICAL HISTORY: Patient Active Problem List Diagnosis Rosacea Class 2 obesity due to excess calories without serious comorbidity with body mass index (BMI) of 35.0 to 35.9 in adult Cerumen impaction Hyperlipidemia Vitamin d deficiency Hypertension Encounter for general adult medical examination with abnormal findings Arthritis of knee Osteoarthritis of left knee Granulocytosis Low serum parathyroid hormone (PTH) Acute reaction to situational stress Hammertoe of right foot Spinal stenosis of lumbar region with neurogenic claudication Metabolic dysfunction-associated steatotic liver disease (MASLD) PAST SURGICAL HISTORY: Past Surgical History: Procedure Laterality Date KNEE ARTHROSCOPY W/ SYNOVECTOMY SC COLONOSCOPY FLX DX W/COLLJ SPEC WHEN PFRMD N/A 04/29/2018 Procedure: COLONOSCOPY SCREENING, LOW RISK; Surgeon: Vasquez Rodriguez MD; Location: [facility]; Service: Gastroenterology SC TOTAL KNEE ARTHROPLASTY Right 03/13/2019 Procedure: Right Total Knee Replacement; Surgeon: Gerry Clemons MD; Location: [facility]; Service: Orthopedics SC TOTAL KNEE ARTHROPLASTY Left 08/30/2019 Procedure: left Total Knee Replacement; Surgeon: Gerry Clemons MD; Location: [facility]; Service: Orthopedics PROCEDURE - HISTORIC N/A History of Knee Surgery MEDICATIONS: Current Outpatient Medications: amoxicillin (AMOXIL) 500 mg capsule, Take 2,000 mg by mouth once. Prior to dental procedures due toknee replacement, Disp: , Rfl: aspirin 81 mg EC tablet, Take 1 tablet (81 mg total) by mouth every 12 hours. Take with food. For 4weeks, Disp: , Rfl: atorvastatin (LIPITOR) 10 mg tablet, TAKE 1 TABLET BY MOUTH ONCE A DAY, Disp: 90 tablet, Rfl: 3 buPROPion XL (WELLBUTRIN XL) 150 mg tablet, TAKE 1 TABLET BY MOUTH EVERY DAY IN THE MORNING, Disp: 90 tablet, Rfl: 1 cholecalciferol (VITAMIN D3) 1,000 unit tablet, Take 1,000 Units by mouth daily., Disp: , Rfl: fenofibrate (LOFIBRA) tablet 160 mg, TAKE 1 TABLET BY MOUTH EVERY DAY, Disp: 90 tablet, Rfl: 3 lisinopriL (PRINIVIL,ZESTRIL) 40 mg tablet, TAKE 1 TABLET BY MOUTH ONCE A DAY, Disp: 90 tablet, Rfl: 3 multivitamin (THERAGRAN) tablet, Take 1 tablet by mouth daily., Disp: , Rfl: naltrexone (REVIA) 50 mg tablet, Take 1 tablet (50 mg total) by mouth once a day., Disp: 90 tablet,Rfl: 3 spironolacton-hydrochlorothiaz (ALDACTAZIDE) 25-25 mg per tablet, TAKE 1 TABLET BY MOUTH EVERY DAY,Disp: 90 tablet, Rfl: 1 ALLERGIES: Allergies Allergen Reactions Atorvastatin Hepatitis ABN LIVER FUNCTION STUDY Family History: Family History Problem Relation Age of Onset Other Other Family History of hypertension Other Other Family History of hyperlipidemia No Known Problems Mother No Known Problems Father No Known Problems Sister No Known Problems Son No Known Problems Son SOCIAL HISTORY: Social History[1] ROS: Wt up 4 lbs. BP at home runs 138-159; normally 140 systolic. Feels naltrexone is helping CV, GI: neg MS: back must improved. EX: 10K steps per day Social: no alcohol or MJ x months All other systems negative Vitals: 01/02/25 1326 BP: (!) 150/99 BP Location: Left arm Patient Position: Sitting Pulse: 80 SpO2: 97% Weight: 93.9 kg (207 lb) Body mass index is 30.57 kg/m??. Physical Exam Vitals and nursing note reviewed. Constitutional: Appearance: Normal appearance. Abdominal: General: Bowel sounds are normal. There is no distension. Palpations: Abdomen is soft. There is no mass. Musculoskeletal: Cervical back: Normal range of motion. Right lower leg: No edema. Left lower leg: No edema. Comments: Lumbar spine scar: no contracture non tender Lymphadenopathy: Cervical: No cervical adenopathy. Skin: Capillary Refill: Capillary refill takes less than 2 seconds. Neurological: General: No focal deficit present. Mental Status: He is alert. Psychiatric: Mood and Affect: Mood normal. Behavior: Behavior normal. Recent Results (from the past 6 weeks) Comprehensive metabolic panel Collection Time: 11/29/24 11:10 AM Specimen: Venous, Peripheral; Blood Result Value Ref Range Glucose 95 65 - 139 mg/dL BUN 20 7 - 25 mg/dL Creatinine 0.78 0.70 - 1.35 mg/dL eGFR 98 > OR = 60 mL/min/1.73m2 Bun/Creatinine Ratio SEE NOTE: 6 - 22 (calc) Sodium 136 135 - 146 mmol/L Potassium 4.3 3.5 - 5.3 mmol/L Chloride 100 98 - 110 mmol/L Carbon Dioxide 29 20 - 32 mmol/L Calcium 10.0 8.6 - 10.3 mg/dL Protein, Total 7.4 6.1 - 8.1 g/dL Albumin 4.8 3.6 - 5.1 g/dL Globulin 2.6 1.9 - 3.7 g/dL (calc) Albumin/Globulin Ratio 1.8 1.0 - 2.5 (calc) Bilirubin, Total 0.4 0.2 - 1.2 mg/dL Alkaline Phosphatase 64 35 - 144 U/L AST 32 10 - 35 U/L ALT 39 9 - 46 U/L Hepatitis Panel, Acute Collection Time: 11/29/24 11:10 AM Specimen: Venous, Peripheral; Blood Result Value Ref Range Hepatitis A IgM NON-REACTIVE NON-REACTIVE Hepatitis B Surface Antigen NON-REACTIVE NON-REACTIVE Hepatitis B Core Antibody NON-REACTIVE NON-REACTIVE Hepatitis C Antibody NON-REACTIVE NON-REACTIVE I spent a total of 45 minutes on the date of encounter, which included: ?? Preparing to see the patient (e.g., review of test results) ?? Obtaining and/or reviewing separately obtained history ?? Performing a medically appropriate exam and/or evaluation ?? Counseling and educating the patient/family/caregiver ?? Ordering medications, tests, procedures ?? Referring and communicating with other healthcare professionals, when not separately reported ?? Documenting clinical information in the health record Care coordination not separately reported Deangelo J [place], MD 01/02/2025 [1] Social History Socioeconomic History Marital status: Spouse name: Not on file Number of children: 2 Years of education: Not on file Highest education level: Not on file Occupational History Occupation: Retired Tobacco Use Smoking status: Never Passive exposure: Never Smokeless tobacco: Never Tobacco comments: : Vaping Use Vaping status: Never Used Substance and Sexual Activity Alcohol use: Yes Alcohol/week: 0.0 - 2.0 standard drinks of alcohol Drug use: Yes Types: Marijuana Sexual activity: Yes Partners: Female control/protection: Male Sterilization Other Topics Concern Not on file Social History Narrative Not on file documented in this encounter Miscellaneous Notes * Assessment & Plan Note - Deangelo Zabala MD - 01/02/2025 4:51 PM ESTAssociated Problem(s): Spinal stenosis of lumbar region with neurogenic claudication Has healed well. Follow up PRN * Assessment & Plan Note - Deangelo Zabala MD - 01/02/2025 4:51 PM ESTAssociated Problem(s): Hypertension Continue Aldactzaide and Lisinopril. CHeck lytes * Assessment & Plan Note - Deangelo Zabala MD - 01/02/2025 4:50 PM ESTAssociated Problem(s): Hyperlipidemia Would like to have him off his gemfibrizol. Will check labs and if US is good, would stop and continue atorvastatin. * Assessment & Plan Note - Deangelo Zabala MD - 01/02/2025 4:49 PM ESTAssociated Problem(s): Class 2 obesity due to excess calories without serious comorbidity with bodymass index (BMI) of 35.0 to 35.9 in adult Pt encouraged to try change his snacking. His exercise seems good. * Assessment & Plan Note - Deangelo Zabala MD - 01/02/2025 2:02 PM ESTAssociated Problem(s): Metabolic dysfunction-associated steatotic liver disease (MASLD) Will check US; FIB 4 is `1.03. Continue current meds documented in this encounter Plan of Treatment Upcoming Encounters Date Type Department Care Team (Late st Contact Info) Description 01/16/2025 7:15 AM EST Appointment [facility] [address] [place] [address] Scheduled Orders Name Type Priority Associated Diagnoses Orde r Schedule US Limited Abdomen Single Org Imaging Routine Metabolic dysfunction-associated steatotic liver disease (MASLD) Expected: 01/02/2025, Expires: 03/02/2026 documented as of this encounter Visit Diagnoses Diagnosis Spinal stenosis of lumbar region with neurogenic claudication- Primary Hypertension Unspecified essential hypertension Hyperlipidemia, unspecified hyperlipidemia type Metabolic dysfunction-associated steatotic liver disease (MASLD) Class 2 obesity due to excess calories without serious comorbidity with body mass index (BMI) of 35.0 to 35.9 in adult documented in this encounter Care Teams Fern Gatherer Relationship Specialty Start Date End Date Deangelo Zabala MD [address] [place] [address] PCP - General Family Medicine 03/12/20 documented as of this encounter
--- OUTSIDE RECORDS SUMMARY | 2025-01-04 10:46 | XMS_ITS | Data Portability ---
Author Organization [facility] Address [address] [place] [address] Care Team Providers Care Naphthalene Operator Helper Name Role Phone RONY FINK Primary Care Provider RONY FINK Referring Provider [phone] Assessment No assessment recorded. Plan of Treatment Reminders Order Date Submit Date Provider Last Modified By Organization Details Last Modified Time Details Appointments None record ed. Lab None record ed. Referral None record ed. Procedures None record ed. Surgeries None record ed. Imaging XR, foot, 3 or more view 023 10/14/20 23 [email or web address] In-House Test, For Internal Use Only, Do Not Delete/merge, [id number] 13:45:23 Medication Orders None record ed. Patient TargetsNo targets recorded. Patient Instructions Encounter Date Encounter Id Patient Instructions Last Modified By Organization Details Last Modified Time 10/14/2023 [id number] For shoes, look at the Jarad fly [...] their satisfaction. Not available 10/14/2023 13:44:48 02/16/2024 [id number] The findings of hammertoe were discussed at [...] For Internal Use Only, Do Not Delete/merge, [id number] 10/14/2023 13:39:48 Result Notes None recorded. Problems Name Problem SNOMED Code Status Onset Date Resolution Date Notes Provider Name and Address Organization Details Recorded Time Hypertensive disorder 65916918 Active 2022 Long Loera D[facility] [address], [address], [facility] 3 13:28:55 Hypercholeste rolemia 37936735 Active 2022 Long Loera DPM [address], [address], [facility] 3 13:29:00 Hammer toe 961347762 Active 2022 Long Loera DPM [address] [facility] [address], [place], [address], [facility] 3 13:37:46 Metatarsalgia 44924387 Active 2022 Long Loera DPM [address] [address], [place], [address], [facility] 3 13:37:50 Degenerative joint disease of ankle AND/OR foot 97627168 Active 2022 Long Loera DPM [address], [address], [facility] 3 13:37:54 Problem Notes None recorded. Procedures Surgical History Date Name Laterality Status Provider Name and Address Organization Details Recorded Time 9 Orthopedic Surgery completed [facility] 10/14/2023 13:06:22 0 Orthopedic Surgery completed [facility] 10/14/2023 13:06:22 Imaging Results Imaging Date Name Status LastModified by Jason marlowion Details LastModified Time 10/12/2023 XR, foot, 3 or more view completed [email or web address] In-House Test For Internal Use Only, Do Not Delete/merge, [id number] 10/14/2023 13:39:48 Procedure Notes None recorded. Medical [...] Updated DateTime 10/14/2023 177.8 cm 30 kg/m2 09875.81 g [facility] 10/14/2023 13:07:03 Date Recorded Body height Body mass index (BMI) Body weight Provider Name and Address Organization Details Last Updated DateTime 02/16/2024 177.8 cm 30 kg/m2 45213.81 g [facility] 02/16/2024 07:46:16 Social History Question Answer Notes LastModified by Carolyn brumfield Details LastModified Time Tobacco Smoking Status Unknown If Ever Smoked [place] Rae vazquez [facility] 10/14/2023 13:06:21 Do You [...] available 10/14/2023 What Is Your Occupation? Retired YES.[employer] Information not available 10/14/2023 What Is Your [...] Do You Have A Medical Power Of Grounds Maintenance Supervisor? Yes Information not available 10/14/2023 What Is [...] SNOMED-CT Code Diagnosis ICD10 Code Diagnosis Note [id number] Long Loera DPM [facility] [address] [address] 10/14/2023 13:02:43 10/27/2023 16:36:19 Hammer toe 771245948 M20.41 Metatarsalgia 87075942 M 77.41 Degenerati ve joint disease of ankle AND/OR foot 64277480 M19.071 M19.072 [id number] Long Loera DPM [facility] [address] [place] [address] 02/16/2024 07:43:46 02/16/2024 08:31:44 Hammer toe 346904964 M20.41 Metatarsalgia 77564077 M 77.41 Degenerati ve joint disease of ankle AND/OR foot 55457098 M19.071 M19.072 Health Concerns Section Related Observation LastModified by Organization Detai ls LastModified Time None Recorded Concern Status LastModified by Organization Details LastModified Time None Recorded Advance Directives Directive N: Payers Encounter Date Sequence Insurance Name Policy Number Policy Sunshine Covered Member ID Sunshine Member ID Guarantor Name 10/14/2023 2 [facility] (MEDICARE SUPPLEMENT) [id number] Yoshi Meyers [id number] Yoshi Meyers 10/14/2023 1 [place] Yoshi Meyers [id number] Yoshi Meyers 02/16/2024 2 [facility] (MEDICARE SUPPLEMENT) 220 Yoshi Meyers [id number] Yoshi Meyers 02/16/2024 1 [place] Yoshi Meyers [id number] Yoshi Meyers Notes Date Note Type [...] surgery in 2018. No further concerns noted. oLng Loera DPM [address], [address], [facility] 10/14/2023 13:45:26 02/16/2024 text/html Follow Up VisitReported bypatient.Symptoms: same Previous Therapy:none Previous Injections:none Prior Studies:noneNotes:Alma raines returns to the office today for a follow up of 2nd digit pain and hammertoes. He states no change since last visit. He relates he has been walking a couple miles everyday denies any issues. No new questions or concerns. Long Loera DPM [address], [address], [facility] 02/16/2024 08:24:30
--- OUTSIDE RECORDS SUMMARY | 2025-01-04 10:46 | XMS_ITS | Encounter Summary ---
Author Organization [facility] Address [address] [place] [address] Care Team Providers Care Poultry Packer Name Role Phone Deangelo Zabala MD Primary Care Provider Encounter Details Date Type Department Care Team (Late st Contact Info) Description 11/30/2024 myChart Message [facility] [address] [place] [address] Deangelo Zabala MD [address] [place] [address] Labs Social History Tobacco Use Types Packs/Day Years Used Date Smoking Tobacco: Never Passive Smoke Exposure: Never Smokeless Tobacco: Never Comments:: Alcohol Use Standard Drinks/Week Comments Yes 0 (1 standard drink = 0.6 oz pur e alcohol) [facility] Utilities Answer Date Recorded In the past 12 months has Placed, gas, oil, or water [employer] threatened to shut off services in your [...] Info) Description 01/16/2025 7:15 AM EST Appointment [facility] [address] [place] [address] documented as of this encounter Visit Diagnoses Not on filedocumented in this encounter Care Teams Poultry Packer Relationship Specialty Start Date End Date Deangelo Zabala MD [address] [place] [address] PCP - General Family Medicine 03/12/20 documented as of this encounter
--- OUTSIDE RECORDS SUMMARY | 2025-01-04 10:46 | XMS_ITS | Encounter Summary ---
Author Organization [facility] Address [address] [place] [address] Care Team Providers Care Second Cook And Baker Name Role Phone Deangelo Zabala MD Primary Care Provider [phone] Encounter Details Date Type Department Care Team (Late st Contact Info) Description 12/05/2024 Telephone [facility] [address] [place] [address] Deangelo Zabala MD [address] [place] [address] Social History Tobacco Use Types Packs/Day Years Used Date Smoking Tobacco: Never Passive Smoke Exposure: Never Smokeless Tobacco: Never Comments:: Alcohol Use Standard Drinks/Week Comments Yes 0 (1 standard drink = 0.6 oz pur e alcohol) [facility] Utilities Answer Date Recorded In the past 12 months has [place], gas, oil, or water [employer] threatened to shut off services in your [...] EST Paperwork was faxed over to [facility]. * Telephone Encounter - Zakiya Trinh - 12/05/2024 1:44 PM EST Tyra from [facility] called in to request labs, EKG and las RPE notes. Please fax to [phone] documented in this encounter Plan of Treatment Upcoming Encounters Date Type Department Care Team (Late st Contact Info) Description 01/16/2025 7:15 AM EST Appointment [facility]ound [address] [place] [address] documented as of this encounter Visit Diagnoses Not on filedocumented in this encounter Care Teams Second Cook And Baker Relationship Specialty Start Date End Date Deangelo Zabala MD [address] [place] [address] PCP - General Family Medicine 03/12/20 documented as of this encounter
--- OUTSIDE RECORDS SUMMARY | 2025-01-04 10:47 | XMS_ITS | Clinical Summary ---
Author Organization [facility] [employer] Address [address] [facility] [place] [address] Care Team Providers Care Capacitor Tester Name Role Phone Pcp, No Primary Care Provider [phone] Medications No known medications Immunizations Name Administration [...] Adults 18 yrs or above (or HM Modifier)([facility]) 1976 Hepatitis C Virus Infection in Adolescents and Adults: Screening (or Modifier) ([facility]) 1976 SDOH Screening Reminder: Ashly cantu for all adults ([facility]) 1976 Tobacco Smoking Cessation: i n Adults excluding Women: Behavioral and Pharmacotherapy Interventions ([facility]) 1976 Colorectal Cancer Screening 45 -75 Yrs (or HM Modifier) 2003 Colorectal Cancer: FLEXIBLE SIGMOIDOSCOPY Screening every 5 yrs 2003 Colorectal Cancer: Fecal Immunochemical Test (FIT) Annually [facility] 2003 Colorectal Cancer: High-sens itivity gFOBT Screening Annually [facility] 2003 Colorectal Cancer: Stool Col oguard Screening every 3 yrs 2003 Colorectal Cancer:CT Colonog caryl Screening every 5 yrs 2003 DTaP/Tdap/Td Vaccines ([facility]) (2 - Td or Tdap) 05/12/2022 05/12/2012, 04/15/2001 Pneumococcal Vaccination Scr eening: Patients 65+ yrs of age ([facility] ) (1 of 1 - PCV) 2023 Flu Vaccination: Ages 65+: Y early High Dose Recommended (or Modifier)([facility] ) 06/15/2024 08/31/2023, 08/2020, 06/28/2017 COVID-19 Vaccine Screening: Initial Series and Booster Status ([facility]) ( season) 2024 08/31/2023, 02/18/2021, 01/28/2021 Lipid Screening: Every 5 yrs for Men aged 35+ (or HM Modifier) ([facility] ) 07/05/2028 07/05/2023 RSV Vaccines (1 - 1-dose 75+ series) 2033 Zoster/Shingles Vaccine Seri es Screening: Adults aged 18+ yrs (or HM Modifiers)([facility] ) Completed 10/08/2021, 06/05/2021 Medical Devices Not on file Insurance [employer] Care Teams Capacitor Tester Relationship Specialty Start Date End Date Pcp, No PCP - General Family Medicine 08/31/23
== END 2025-01-04 11:02 | disposition home or self-care (01) ==
PROVIDERS: PCP Family Medicine; Visit Provider Physician Assistant
DX: Z98.890 Other specified postprocedural states (principal)
CPT/HCPCS: 99024

== ENCOUNTER → 2025-01-04 09:54 | Outpatient (BNVA) | payer MEDICARE, SELFPAY | PROVIDERS: PCP Family Medicine; Visit Provider Physician Assistant | DX: Z47.89 Encounter for other orthopedic aftercare (principal); Z98.890 Other specified postprocedural states | CPT/HCPCS: 99212 ==